=== PATIENT | female | born 1960 | race Caucasian/White ===

== ENCOUNTER 2018-07-31 14:21 | Emergency (ER) | payer MEDICARE ==
[2018-07-31 14:46] VITALS: BP 127/75
--- NOTE | 2018-07-31 17:02 | ED Physician Documentation ---
PD HPI UPPER EXT INJURY - Stated complaint Stated Complaint: LEFT MID FINGER INJ - Chief complaint Chief Complaint: Ext Problem - History obtained from History obtained from: Patient - History of Present Illness Location: Left, Hand (3rd finger) Where injury occurred: Home Timing - onset: Yesterday Timing - duration: Days (1) Timing - details: Abrupt onset Pain level max: 3 Pain level now: 2 Improved by: Rest Worsened by: Moving Associated symptoms: Swelling, Discolored (bruising). No: Weakness, Numbness, Tingling Contributing factors: No: Anticoagulated, Prior ortho surgery Similar symptoms before: Has not had sx before Recently seen: Not recently seen - Additonal information Additional information: pt is right handed. unable to extend L 3rd digit MCP joint after shaking her hand hard yesterday. 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 NVI. unable to extend MCP joint. ) - Neuro Neuro: Alert and oriented X 3 Results - Vitals Vitals: Vital Signs - 24 hr 07/31/18 14:42 Temperature 36.1 C L Heart Rate 101 H Respiratory 16 Rate Blood Pressure 127/75 O2 Saturation 97 Oxygen O2 Source Room air - Rads (name of study) L hand xray Radiology: Prelim report reviewed, EMP read contemporaneously, See rad report (Soft tissue swelling. ) PD MEDICAL DECISION MAKING - ED course Complexity details: reviewed results, re-evaluated patient, considered differential, d/w patient ED course: Patient is a 57-year-old female who appears to have a tendon injury to the left third digit, proximal phalanx, unable to fully extend that finger. No acute findings on x-ray. She was placed in a splint in extension. We will have her follow-up with a hand surgeon for repeat evaluation. Patient counseled regarding signs and symptoms for which I believe and urgent re-evaluation would be necessary. Patient with good understanding of and agreement to plan and is comfortable going home at this time This document was made in part using voice recognition software. While efforts are made to proofread this document, sound alike and grammatical errors may occur. Neurovascularly intact Departure - Departure Disposition: 01 Home, Self Care Clinical Impression: Injury of tendon of finger Condition: Good Instructions: ED Rupture Tendon Finger Follow-Up: Provider,Other [Physician No Access] - Comments: Ethan Smith Hand surgery [facility] Mon - Jess: 7 am - 6 pm Fri: 7 am - 5 pm Stay in the splint until released by hand surgery. This hopefully will heal on its own with splinting. Return if you worsen. Discharge Date/Time: 07/31/18 18:14
--- NOTE | 2018-07-31 17:35 | XRAY Report ---
Reason: L hand and prox phal 3rd digit injury Procedure Date: 07/31/2018 Accession Number: [id number] / [id number] Procedure: XR - Hand 3 View LT CPT Code: FULL RESULT: EXAM: LEFT HAND RADIOGRAPHY EXAM DATE: 07/31/2018 05:14 PM. CLINICAL HISTORY: Trauma, pain. COMPARISON: None. TECHNIQUE: 3 views. FINDINGS: Bones: Osteopenia. Thickened fifth metacarpal base due to old fracture. No definite acute fracture or other bone lesion. Joints: Mild degenerative changes most marked in the first CMC joint. Soft Tissues: Mild soft tissue swelling. IMPRESSION: Soft tissue swelling. RADIA
== END 2018-07-31 18:14 | disposition home or self-care (01) ==
LOC: ED 14:21
DX: S69.92XA Unspecified injury of left wrist, hand and finger(s), initial encounter (principal); I10 Essential (primary) hypertension; Z87.891 Personal history of nicotine dependence; X58.XXXA Exposure to other specified factors, initial encounter; Y92.009 Unspecified place in unspecified non-institutional (private) residence as the place of occurrence of the external cause
CPT/HCPCS: 99283

== ENCOUNTER 2019-01-18 15:06 | Outpatient (CLI) | payer MEDICARE | END 2019-01-18 15:07 | disposition critical access hospital (66) | LOC: EMS 15:06 | PROVIDERS: ATTEND Surgery | DX: R11.0 Nausea (principal); R10.9 Unspecified abdominal pain; R42 Dizziness and giddiness; I49.8 Other specified cardiac arrhythmias | CPT/HCPCS: A0425; A0427 ==

== ENCOUNTER 2019-01-18 15:35 | Inpatient (IN) | payer MEDICAID, MEDICARE ==
[2019-01-18 16:02] LABS: BASOPHILS # (AUTO) 0.1 10^3/uL (0.0-0.1); BASOPHILS % (AUTO) 0.9 %; EOSINOPHILS % (AUTO) 0.2 %; HGB - HEMOGLOBIN 12.6 g/dL (12.0-16.0); LYMPHOCYTES % (AUTO) 13.8 %; MEAN CORPUSCULAR HEMOGLOBIN 34.1 pg (27.0-31.0); MEAN CORPUSCULAR HGB CONC 31.5 g/dL (32.0-36.0); MEAN CORPUSCULAR VOLUME 108.3 fL (81.0-99.0); MEAN PLATELET VOLUME 8.1 fL (7.9-10.8); MONOCYTES # (AUTO) 0.3 10^3/uL (0.0-1.0); MONOCYTES % (AUTO) 3.9 %; NEUTROPHILS # (AUTO) 5.6 10^3/uL (1.5-6.6); NEUTROPHILS % (AUTO) 81.2 %; PLT - PLATELET COUNT 193 10^3/uL (130-450); RED BLOOD COUNT 3.69 10^6/uL (4.20-5.40); RED CELL DISTRIBUTION WIDTH 17.3 % (12.0-15.0); WHITE BLOOD COUNT 6.9 x10^3/uL (4.8-10.8)
[2019-01-18] MEDS ORDERED: SODIUM CHLORIDE 0.9% 1,000 ML IV ONE (16:19)
[2019-01-18] MEDS ORDERED: PROMETHAZINE INJ 25 MG in SODIUM CHLORIDE 0.9% 50 ML IV STA (16:19)
--- NOTE | 2019-01-18 16:21 | ED Physician Documentation ---
History of Present Illness - Stated complaint Stated Complaint: ABD PX - Chief complaint Chief Complaint: Abd Pain - History obtained from History obtained from: Patient, EMS - History of Present Illness Timing: Yesterday Pain level max: 8 Pain level now: 8 - Additonal information Additional information: 58-year-old female complains of significant severe nausea since yesterday. She states that occasionally her abdomen hurts. She is unable to tolerate p.o. today. No fevers. No changes to her medications. She used to drink heavily but has not had a drink of alcohol in the last 9 months. She received Zofran with EMS but this has not helped. Nothing makes it better. Eating makes it worse. 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 - Present Medications Home Medications: Ambulatory Orders Medication Instructions Recorded Confirmed Albuterol Sulfate 1.25 mg IH 01/18/19 01/18/19 Albuterol Sulfate [Proair Hfa 1 - 2 puffs INH Q4H PRN 01/18/19 01/18/19 Inhaler] Budesonide/Formoterol Fumarate 10.2 gm 01/18/19 [Symbicort 80-4.5 Mcg Inhaler] Fesoterodine Fumarate [Toviaz] 8 mg DAILY 01/18/19 01/18/19 Gabapentin [Neurontin] 300 mg PO TID 01/18/19 01/18/19 Lisinopril 10 mg PO DAILY 01/18/19 01/18/19 Omeprazole 40 mg BID 01/18/19 01/18/19 Oxycodone HCl [Roxicodone] 15 mg PO TID 01/18/19 01/18/19 Tizanidine HCl [Zanaflex] 2 mg PO QPM 01/18/19 01/18/19 Topiramate 25 mg PO BID 01/18/19 01/18/19 traZODone [Desyrel] 50 mg QPM 01/18/19 01/18/19 - Allergies Allergies/Adverse Reactions: Allergies Allergy/AdvReac Type Severity Reaction Status Date / Time Sulfa (Sulfonamide Allergy Unknown Verified 01/18/19 15:41 Antibiotics) - Social History Does the pt smoke?: Yes Smoking Status: Former smoker Does the pt drink ETOH?: No Does the pt have substance abuse?: No - POLST Patient has POLST: No PD ED PE NORMAL - Vitals Vital signs reviewed: Yes - General General: Alert and oriented X 3, No acute distress, Well developed/nourished - HEENT HEENT: PERRL, Moist mucous membranes - Neck Neck: Supple, no meningeal sign - Cardiac Cardiac: RRR, Strong equal pulses - Respiratory Respiratory: No respiratory distress, Clear bilaterally - Abdomen Abdomen: Soft, Non tender, Non distended - Derm Derm: Warm and dry, No rash - Extremities Extremities: No calf tenderness / cord - Neuro Neuro: Alert and oriented X 3 - Psych Psych: Normal mood, Normal affect Results - Vitals Vitals: Vital Signs - 24 hr 01/18/19 01/18/19 15:36 17:41 Temperature 36.8 C Heart Rate 116 H 113 H Respiratory 20 17 Rate Blood Pressure 123/71 115/68 O2 Saturation 100 100 Oxygen O2 Source Room air - Labs Labs: Laboratory Tests 01/18/19 01/18/19 01/18/19 15:55 15:55 15:55 WBC 6.9 RBC 3.69 L Hgb 12.6 Hct 40.0 MCV 108.3 H MCH 34.1 H MCHC 31.5 L RDW 17.3 H Plt Count 193 MPV 8.1 Neut # (Auto) 5.6 Lymph # (Auto) 1.0 L [place] # (Auto) 0.3 Eos # (Auto) 0.0 Baso # (Auto) 0.1 Absolute Nucleated RBC 0.01 Nucleated RBC % 0.2 VBG pH VBG pCO2 VBG pO2 VBG HCO3 VBG Total CO2 VBG O2 Saturation VBG Base Excess Sodium 132 L Potassium 4.3 Chloride 97 L Carbon Dioxide 9 L* Anion Gap 26.0 H BUN 9 Creatinine 1.0 Estimated GFR (MDRD) 57 L Glucose 59 L* Lactic Acid Calcium 9.2 Phosphorus Magnesium Total Bilirubin 1.8 H AST 79 H ALT 44 Alkaline Phosphatase 99 Total Protein 6.8 Albumin 3.8 Globulin 3.0 Albumin/Globulin Ratio 1.3 Lipase 281 H Urine Color Urine Clarity Urine pH Ur Specific [place] Urine Protein Urine Glucose (UA) Urine Ketones Urine Occult Blood Urine Nitrite Urine Bilirubin Urine Urobilinogen Ur Leukocyte Esterase Urine RBC Urine WBC Ur Squamous Epith Cells Urine Bacteria Urine Casts Ur Microscopic Review Urine Culture Comments Salicylates Urine Opiates Screen Ur Oxycodone Screen Urine Methadone Screen Ur Propoxyphene Screen Acetaminophen Ur Barbiturates Screen Ur Tricyclics Screen Ur Phencyclidine Scrn Ur Amphetamine Screen U Methamphetamines Scrn U Benzodiazepines Scrn Urine Cocaine Screen U Cannabinoids Screen Ethyl Alcohol < 5.0 Serum Ketones 01/18/19 01/18/19 01/18/19 15:55 15:55 15:55 WBC RBC Hgb Hct MCV MCH MCHC RDW Plt Count MPV Neut # (Auto) Lymph # (Auto) [place] # (Auto) Eos # (Auto) Baso # (Auto) Absolute Nucleated RBC Nucleated RBC % VBG pH VBG pCO2 VBG pO2 VBG HCO3 VBG Total CO2 VBG O2 Saturation VBG Base Excess Sodium Potassium Chloride Carbon Dioxide Anion Gap BUN Creatinine Estimated GFR (MDRD) Glucose Lactic Acid Calcium Phosphorus 2.5 Magnesium 2.0 Total Bilirubin AST ALT Alkaline Phosphatase Total Protein Albumin Globulin Albumin/Globulin Ratio Lipase Urine Color Urine Clarity Urine pH Ur Specific [place] Urine Protein Urine Glucose (UA) Urine Ketones Urine Occult Blood Urine Nitrite Urine Bilirubin Urine Urobilinogen Ur Leukocyte Esterase Urine RBC Urine WBC Ur Squamous Epith Cells Urine Bacteria Urine Casts Ur Microscopic Review Urine Culture Comments Salicylates 10.5 Urine Opiates Screen Ur Oxycodone Screen Urine Methadone Screen Ur Propoxyphene Screen Acetaminophen < 10 L Ur Barbiturates Screen Ur Tricyclics Screen Ur Phencyclidine Scrn Ur Amphetamine Screen U Methamphetamines Scrn U Benzodiazepines Scrn Urine Cocaine Screen U Cannabinoids Screen Ethyl Alcohol Serum Ketones SMALL H 01/18/19 01/18/19 01/18/19 16:20 16:20 16:33 WBC RBC Hgb Hct MCV MCH MCHC RDW Plt Count MPV Neut # (Auto) Lymph # (Auto) [place] # (Auto) Eos # (Auto) Baso # (Auto) Absolute Nucleated RBC Nucleated RBC % VBG pH VBG pCO2 VBG pO2 VBG HCO3 VBG Total CO2 VBG O2 Saturation VBG Base Excess Sodium Potassium Chloride Carbon Dioxide Anion Gap BUN Creatinine Estimated GFR (MDRD) Glucose Lactic Acid 1.5 Calcium Phosphorus Magnesium Total Bilirubin AST ALT Alkaline Phosphatase Total Protein Albumin Globulin Albumin/Globulin Ratio Lipase Urine Color YELLOW Urine Clarity CLEAR Urine pH 5.5 Ur Specific [place] >=1.030 H Urine Protein 30 H Urine Glucose (UA) NEGATIVE Urine Ketones >=80 H Urine Occult Blood SMALL H Urine Nitrite NEGATIVE Urine Bilirubin NEGATIVE Urine Urobilinogen 0.2 (NORMAL) Ur Leukocyte Esterase NEGATIVE Urine RBC 0-5 Urine WBC 0-3 Ur Squamous Epith Cells RARE Squamous Urine Bacteria None Seen Urine Casts 3-5 Fine Granular Ur Microscopic Review INDICATED Urine Culture Comments NOT INDICATED Salicylates Urine Opiates Screen POSITIVE H Ur Oxycodone Screen POSITIVE H Urine Methadone Screen NEGATIVE Ur Propoxyphene Screen NEGATIVE Acetaminophen Ur Barbiturates Screen NEGATIVE Ur Tricyclics Screen NEGATIVE Ur Phencyclidine Scrn NEGATIVE Ur Amphetamine Screen NEGATIVE U Methamphetamines Scrn NEGATIVE U Benzodiazepines Scrn NEGATIVE Urine Cocaine Screen NEGATIVE U Cannabinoids Screen NEGATIVE Ethyl Alcohol Serum Ketones 01/18/19 16:33 WBC RBC Hgb Hct MCV MCH MCHC RDW Plt Count MPV Neut # (Auto) Lymph # (Auto) [place] # (Auto) Eos # (Auto) Baso # (Auto) Absolute Nucleated RBC Nucleated RBC % VBG pH 7.191 L VBG pCO2 17.8 L VBG pO2 108.3 H VBG HCO3 6.7 L VBG Total CO2 7.2 L VBG O2 Saturation 97.2 H VBG Base Excess -19.3 L Sodium Potassium Chloride Carbon Dioxide Anion Gap BUN Creatinine Estimated GFR (MDRD) Glucose Lactic Acid Calcium Phosphorus Magnesium Total Bilirubin AST ALT Alkaline Phosphatase Total Protein Albumin Globulin Albumin/Globulin Ratio Lipase Urine Color Urine Clarity Urine pH Ur Specific [place] Urine Protein Urine Glucose (UA) Urine Ketones Urine Occult Blood Urine Nitrite Urine Bilirubin Urine Urobilinogen Ur Leukocyte Esterase Urine RBC Urine WBC Ur Squamous Epith Cells Urine Bacteria Urine Casts Ur Microscopic Review Urine Culture Comments Salicylates Urine Opiates Screen Ur Oxycodone Screen Urine Methadone Screen Ur Propoxyphene Screen Acetaminophen Ur Barbiturates Screen Ur Tricyclics Screen Ur Phencyclidine Scrn Ur Amphetamine Screen U Methamphetamines Scrn U Benzodiazepines Scrn Urine Cocaine Screen U Cannabinoids Screen Ethyl Alcohol Serum Ketones - Rads (name of study) CT abdomen pelvis Radiology: Prelim report reviewed, EMP read contemporaneously, See rad report (There appears to be acute pancreatitis. Correlate clinically. There is mild to moderate stranding seen adjacent to the head of the pancreas with soft tissue attenuation between the head of the pancreas and second portion of the duodenum which could represent phlegmon or fluid from acute pancreatitis versus acute duodenitis. Follow-up imaging is recommended to ensure resolution to exclude a low density mass, measures 1.1 x 3.3 cm. 2. Normal appendix. A few sigmoid colon diverticula. 3. A few left-sided small subserosal uterine fibroids are noted. 4. Severe fatty liver. 5. Mild common duct dilatation. 6. See above. ) PD MEDICAL DECISION MAKING - ED course Complexity details: reviewed results, re-evaluated patient, considered differential, d/w patient, d/w architectural sales consultant ED course: 58-year-old female with pancreatitis. She also has a metabolic acidosis. Significant decrease in her pH and CO2. Given IV fluids. She states that she is to be an alcoholic but has not had an alcoholic drink in 9 months. Initial consideration for possible alcoholic ketoacidosis? Has an elevated anion gap as well. Has pancreatitis on the CT scan. Ultrasound ordered and will be followed up by the hospitalist. Also had hypoglycemia and was started on dextrose. Will admit for further evaluation and care. Discussed the case with Dr. Miller, hospitalist accepts. Also discussed the case with her daughter over the phone who is a pediatric ICU nurse. This document was made in part using voice recognition software. While efforts are made to proofread this document, sound alike and grammatical errors may occur. Departure - Departure Disposition: 66 [facility] DC/Xfer Clinical Impression: Metabolic acidosis, Hypoglycemia, Tachycardia Pancreatitis Qualifiers: Chronicity: acute Pancreatitis type: unspecified pancreatitis type Acute pancreatitis complication: unspecified Qualified Code(s): K85.90 - Acute pancreatitis without necrosis or infection, unspecified Condition: Stable Discharge Date/Time: 01/18/19 20:35
[2019-01-18 16:22] LABS: ALBUMIN 3.8 g/dL (3.2-5.5); ALBUMIN/GLOBULIN RATIO 1.3 (1.0-2.2); BILIRUBIN,TOTAL 1.8 mg/dL (0.2-1.0); CALCIUM 9.2 mg/dL (8.5-10.3); TOTAL PROTEIN 6.8 g/dL (6.7-8.2)
[2019-01-18] MEDS ORDERED: DEXTROSE 5% 1,000 ML IV ONE ×2 (16:24→21:37)
[2019-01-18] MEDS ORDERED: IOVERSOL 320 100 ML VIAL IVP ONE (16:30)
[2019-01-18 16:32] LABS: BILIRUBIN,URINE NEGATIVE (NEGATIVE); GLUCOSE, URINE (UA) NEGATIVE (NEGATIVE); KETONES,URINE (UA) >=80 mg/dL (NEGATIVE); LEUKOCYTE ESTERASE, URINE NEGATIVE (NEGATIVE); NITRITE,URINE NEGATIVE (NEGATIVE); OCCULT BLOOD,URINE SMALL (NEGATIVE); PH,URINE 5.5 PH (5.0-7.5); PROTEIN,URINE 30 mg/dL (NEGATIVE); UROBILINOGEN,URINE 0.2 (NORMAL) E.U./dL (NORMAL)
[2019-01-18 16:35] LABS: CLARITY,URINE CLEAR (CLEAR)
[2019-01-18 16:43] LABS: VBG BASE EXCESS -19.3 mmol/L (-2 - +2); VBG PCO2 17.8 mmHg (41-51); VBG PH 7.191 (7.31-7.41); VBG PO2 108.3 mmHg (25-47); VBG TOTAL CO2 7.2 mmol/L (24-29)
[2019-01-18 16:45] LABS: BACTERIA,URINE None Seen /HPF (None Seen); CASTS, URINE 3-5 Fine Granular /LPF; RBC,URINE 0-5 /HPF (0-5); SQUAMOUS EPITHELIAL CELL,UR RARE Squamous (<= Few)
[2019-01-18 16:45] LABS: KETONES, SERUM (ACETEST) SMALL (NEGATIVE)
[2019-01-18] MEDS ORDERED: FOLIC ACID INJ 1 MG, THIAMINE INJ 100 MG, MAGNESIUM SULFATE 2 GM, MULTIVITAMIN 10 ML in... IV STA ×5 (16:51)
[2019-01-18 16:52] LABS: PHOSPHORUS 2.5 mg/dL (2.5-4.6)
[2019-01-18 16:54] LABS: MUDS CUTOFF CONCENTRATIONS CUTOFF CONC BELOW:
[2019-01-18 17:06] LABS: AMPHETAMINE SCREEN,URINE NEGATIVE (NEGATIVE); BENZODIAZEPINES SCREEN, URINE NEGATIVE (NEGATIVE); COCAINE SCREEN URINE NEGATIVE (NEGATIVE); METHADONE SCREEN, URINE NEGATIVE (NEGATIVE); METHAMPHETAMINES SCREEN, URINE NEGATIVE (NEGATIVE); OPIATE SCREEN, URINE POSITIVE (NEGATIVE); OXYCODONE SCREEN, URINE POSITIVE (NEGATIVE); PROPOXYPHENE SCREEN, URINE NEGATIVE (NEGATIVE); TRICYCLIC ANTIDEPRESSANT,URINE NEGATIVE (NEGATIVE)
--- NOTE | 2019-01-18 17:42 | CT Report ---
Reason: diffuse abd pain Procedure Date: 01/18/2019 Accession Number: [id number] / [id number] Procedure: CT - Abdomen/Pelvis W CPT Code: FULL RESULT: EXAM: CT ABDOMEN AND PELVIS EXAM DATE: 01/18/2019 05:03 PM. CLINICAL HISTORY: Diffuse abdominal pain. COMPARISONS: None. TECHNIQUE: Routine helical CT imaging was performed through the abdomen and pelvis. IV contrast: Optiray 320, 100 mL. Enteric contrast: Yes. Reconstructions: Coronal and sagittal. Had issue with IV on first injection. First scan has no IV contrast. Patient rescanned with successful IV contrast. In accordance with CT protocol optimization, one or more of the following dose reduction techniques were utilized for this exam: automated exposure control, adjustment of mA and/or KV based on patient size, or use of iterative reconstructive technique. FINDINGS: Lung bases: No acute findings. Liver: Severe fatty liver. Gallbladder: Unremarkable. Bile ducts: Mildly dilated common duct measuring 1 cm, gradually tapers distally. Pancreas: There is mild to moderate stranding seen adjacent to the head of the pancreas with soft tissue attenuation between the head of the pancreas and second portion of the duodenum which could represent phlegmon or fluid from acute pancreatitis versus acute duodenitis. Follow-up imaging is recommended to ensure resolution to exclude a low density mass, measures 1.1 x 3.3 cm. No pancreatic dilatation. Spleen: Unremarkable. Adrenals: Unremarkable. Kidneys: Unremarkable. No urinary tract calculi. Bowel: Normal appendix. A few sigmoid colon diverticula. No acute bowel findings are seen. No evidence for bowel obstruction. Pelvis: The bladder is partially decompressed. A few small left-sided subserosal uterine fibroids are noted. Vasculature: No acute findings. Bones: Left proximal femur internal fixation hardware. Lumbar spine hardware for fusion. No acute bone findings are seen. IMPRESSION: 1. There appears to be acute pancreatitis. Correlate clinically. There is mild to moderate stranding seen adjacent to the head of the pancreas with soft tissue attenuation between the head of the pancreas and second portion of the duodenum which could represent phlegmon or fluid from acute pancreatitis versus acute duodenitis. Follow-up imaging is recommended to ensure resolution to exclude a low density mass, measures 1.1 x 3.3 cm. 2. Normal appendix. A few sigmoid colon diverticula. 3. A few left-sided small subserosal uterine fibroids are noted. 4. Severe fatty liver. 5. Mild common duct dilatation. 6. See above. RADIA
[2019-01-18] MEDS ORDERED: HALOPERIDOL 5 MG/ML VIAL IVP STA (17:48)
[2019-01-18] MEDS ORDERED: PROCHLORPERAZINE 10 MG/2 ML VIAL IVP SCH (18:49)
[2019-01-18] MEDS ORDERED: LORazepam 2 MG/ML VIAL IVP STA (19:45)
[2019-01-18 20:20] LABS: VBG PCO2 27.1 mmHg (41-51); VBG PH 7.152 (7.31-7.41); VBG PO2 51.5 mmHg (25-47); VBG TOTAL CO2 10.1 mmol/L (24-29)
--- NOTE | 2019-01-18 20:58 | HISTORY & PHYSICAL EXAMINATION ---
Chief Complaint - Chief Complaint Chief Complaint: nausea, abdominal pain and dyspnea History of Present Illness - Admitted From Admitted From:: [facility] - History Obtained From Records Reviewed: yes History obtained from: patient - History of Present Illness HPI Comment/Other: Patient seen on 01/18/19 at 20:15pm Patient is a 58 y/o female who presented to the ED with complain of persistent nausea, diffuse abdominal pain and dyspnea. She has been nauseous and dry heaving since yesterday morning. She has been dyspneic for the past 4 days. Her abdominal pain is diffuse and sharp in nature. she has been constipated for the past 7 days. She reports a similar episode of this about 1 month ago, which lasted for 6 days. She reports chills but no fever. She denies eating anything bad and no sick contacts. As a result of her symptoms she has had poor po intake for the past 2 days. In the ED she was found to have a bicarbonate level of 9 and pH of 7.19 [address] a VBG. Her CT scan was also concerning for acute pancreatitis. As a result of her symptoms, she is being admitted for further management. History - Past Medical History Cardiovascular: reports: Hypertension Respiratory: reports: Asthma GI: reports: GERD : reports: Other (overactive bladder) Other Past Medical History: Insomnia - Past Surgical History Ortho: reports: Spine surgery (L4-L5 fusion) /PERINATAL NURSE: reports: section, Oophrectomy (bilateral) HEENT: reports: Tonsil/Adenoidectomy - Family & Social History Family History: Mother: CAD, Father: CVA/TIA, Other family: Cancer (daughter: breast cancer) Living arrangement: At home Living Situation: Alone Social History Notes: She denies alcohol, tobacco or illicit drug use - Substance History Use: Uses substance without health or social issues: NONE - POLST Patient has POLST: No POLST Status: Full Code Meds/Allgy - Home Medications Home Medications: Ambulatory Orders Medication Instructions Recorded Confirmed Albuterol Sulfate [Proair Hfa 1 - 2 puffs INH Q4H PRN 01/18/19 01/18/19 Inhaler] Budesonide/Formoterol Fumarate 10.2 gm IH 01/18/19 [Symbicort 80-4.5 Mcg Inhaler] Fesoterodine Fumarate [Toviaz] 8 mg DAILY 01/18/19 01/18/19 Gabapentin [Neurontin] 300 mg PO TID 01/18/19 01/18/19 Oxycodone HCl [Roxicodone] 15 mg PO TID 01/18/19 01/18/19 RX: Albuterol Sulfate 1.25 mg IH 01/18/19 01/18/19 RX: Lisinopril 10 mg PO DAILY 01/18/19 01/18/19 RX: Omeprazole 40 mg BID 01/18/19 01/18/19 RX: Topiramate 25 mg PO BID 01/18/19 01/18/19 RX: traZODone [Desyrel] 50 mg QPM 01/18/19 01/18/19 Tizanidine HCl [Zanaflex] 2 mg PO QPM 01/18/19 01/18/19 - Allergies Allergies/Adverse Reactions: Allergies Allergy/AdvReac Type Severity Reaction Status Date / Time Sulfa (Sulfonamide Allergy Unknown Verified 01/18/19 15:41 Antibiotics) Review of Systems - Constitutional Constitutional: reports: Chills, Weakness, Poor appetite. denies: Fever - Eyes Eyes: denies: Blurred vision, Vision loss, Dipolpia - Ears, Nose & Throat Ears, Nose & Throat: denies: Nasal pain, Nasal discharge, Sore throat, Hoarseness - Cardiovascular Cariovascular: denies: Chest pain, Edema - Respiratory Respiratory: reports: SOB at rest. denies: Cough, Sputum production, Wheezing - Gastrointestinal Gastrointestinal: reports: Abdominal pain, Constipation, Nausea, Reflux/heartburn, Poor appetite. denies: Rectal bleeding, Vomiting, Coffee grounds emesis - Genitourinary Genitourinary: denies: Dysuria, Frequency, Urgency, Hematuria - Integumentary Integumentary: denies: Rash, Pruritis, Lesions, Dryness - Neurological Neurological: denies: General weakness, Focal weakness, Headache, Dizziness - Psychiatric Psychiatric: denies: Depression, Anxiety - Endocrine Endocrine: denies: Polyuria, Polydypsia - Hematologic/Lymphatic Hematologic/Lymphatic: denies: Anemia, Bruising Prior Level of Functionality: Is independent of activities of daily living Exam - Vital Signs Vital Signs: Vital Signs x48h Temp Pulse Resp BP Pulse Ox 01/18/19 19:28 108 H 16 149/82 H 99 01/18/19 18:49 110 H 17 139/75 H 100 01/18/19 17:41 113 H 17 115/68 100 01/18/19 15:36 36.8 C 116 H 20 123/71 100 - Physical Exam General Appearance: positive: Alert, Mild distress Eyes Bilateral: positive: Normal inspection, PERRL, EOMI. negative: No scleral icterus ENT: positive: ENT inspection nml, Pharynx nml, Dry mucous membranes Neck: positive: Nml inspection, No JVD, Trachea midline Respiratory: positive: Chest non-tender. negative: Wheezes, Rales, Rhonchi Cardiovascular: positive: No murmur, Tachycardia Abdomen: positive: Nml bowel sounds, No distention, Tenderness (mild). negative: Guarding, Rebound, Hepatomegaly, Splenomegaly Back: positive: Nml inspection Skin: positive: Color nml, No rash, Warm, Dry Extremities: positive: Non-tender, Full ROM, Nml appearance, No pedal edema Neurologic/Psychiatric: positive: Oriented x3 Conclusion/Plan - Problem List (1) Pancreatitis Conclusion/Plan: Patient npo IV hydration with normal saline Pain management US of gall bladder pending Qualifiers: Chronicity: acute Pancreatitis type: unspecified pancreatitis type Acute pancreatitis complication: unspecified Qualified Code(s): K85.90 - Acute pancreatitis without necrosis or infection, unspecified (2) Metabolic acidosis Conclusion/Plan: Likely 2/2 poor po intake Patient had elevated ketones with hypoglycemia HCO3 9. Patient receiving sodium bicarbonate in d5w at 150ml/hr Will recheck bmp Zofran IV for nausea (3) Hypertension Conclusion/Plan: Patient on lisinopril at home Will resume when appropriate. Currently hydrating patient (4) Chronic back pain Conclusion/Plan: Dilaudid ordered Qualifiers: Back pain location: low back pain (5) GERD (gastroesophageal reflux disease) Conclusion/Plan: Protonix ordered (6) OAB (overactive bladder) Conclusion/Plan: Resume toviaz when appropriate (7) Insomnia Conclusion/Plan: On trazodone (8) Asthma Conclusion/Plan: Not in exacerbation Continue home medication Will order duoneb prn when indicated - Lab Results Fish Bones: 01/19/19 04:25 01/19/19 04:25 Core Measures - Anticipated LOS I expect patient to be DC'd or transferred within 96 hours.: Yes - DVT/VTE - Prophylaxis VTE/DVT Device ordered at admit?: Yes VTE/DVT Prophylaxis med ordered at admit?: Yes
[2019-01-18] MEDS: SODIUM CHLORIDE FLUSH 0.9% 10 ML SYRINGE IVP SCH (21:36)
[2019-01-18] MEDS: SODIUM BICARBONATE 150 MEQ in DEXTROSE 5% 1,000 ML IV SCH ×2 (21:36→22:07)
[2019-01-18] MEDS: SODIUM CHLORIDE 0.9% 1,000 ML IV SCH (21:37)
[2019-01-18] MEDS ORDERED: CIPROFLOX/DEXAMETH OTIC DROPS ONE (21:42)
[2019-01-18] MEDS ORDERED: SODIUM BICARBONATE 8.4% 50 MEQ/50 ML VIAL ONE (21:45)
[2019-01-18] MEDS: ONDANSETRON 4 MG/2 ML VIAL IVP PRN (22:52)
[2019-01-18] MEDS: HYDROmorphone 0.5 MG/0.5 ML SYRINGE IVP PRN (22:52)
[2019-01-18] MEDS: SODIUM CHLORIDE FLUSH 0.9% 10 ML SYRINGE IVP PRN (22:52)
--- NOTE | 2019-01-18 23:46 | Ultrasound Report ---
Reason: pancreatitis, RUQ US Procedure Date: 01/18/2019 Accession Number: [id number] Procedure: US - Abdomen Limited CPT Code: FULL RESULT: EXAM: ABDOMEN ULTRASOUND LIMITED, RUQ EXAM DATE: 01/18/2019 09:45 PM. CLINICAL HISTORY: Pancreatitis, RUQ US. COMPARISON: ABDOMEN/PELVIS W/ 01/18/2019 4:51 PM. TECHNIQUE: Real-time scanning was performed with static images obtained. FINDINGS: Liver: Liver parenchyma is heterogeneous and moderate to markedly hyperechoic. No discrete liver masses or intrahepatic bile duct dilation. However, evaluation for masses is limited secondary to the echogenicity. Right liver measures 14.7 cm. Main portal vein flow: Hepatopetal. Gallbladder: Normal. No stones, wall thickening, or sonographic Chaudhari's sign. Biliary System: CBD measures 10 mm. No intrahepatic bile duct dilation. Common bile duct measures 0.6 cm the pancreas head. Pancreas: Echogenic parenchyma. Mildly prominent pancreatic duct measures 0.3 cm. No mass. Right kidney: 10.6 cm. No hydronephrosis. Mild echogenic nonshadowing foci are noted in the inferior right kidney. No renal calculi noted on the CT performed on the same day. Abdominal aorta and IVC: Normal. Other: Study limited due to bowel gas. IMPRESSION: 1. Moderately fatty liver. No mass. No intrahepatic bile duct dilation. 2. Normal gallbladder. Common bile duct is prominent measuring up to 10 mm. No common bile duct stone. 3. Acute pancreatitis but is seen on accompanying CT. Parenchyma is echogenic. Mildly prominent pancreatic duct. No mass or peripancreatic collection. RADIA
[2019-01-19 01:22] LABS: CREATININE 0.8 mg/dL (0.4-1.0)
[2019-01-19] MEDS ORDERED: METOPROLOL 5 MG/5 ML VIAL IVP PRN (01:29)
[2019-01-19] MEDS: HYDROmorphone 0.5 MG/0.5 ML SYRINGE IVP PRN ×4 (02:26→12:36)
[2019-01-19] MEDS: SODIUM CHLORIDE FLUSH 0.9% 10 ML SYRINGE IVP PRN ×10 (02:27→23:44)
[2019-01-19] MEDS: PROCHLORPERAZINE 10 MG/2 ML VIAL IVP PRN ×4 (03:55→21:49)
[2019-01-19] MEDS: SODIUM CHLORIDE 0.9% 1,000 ML IV SCH ×3 (03:56→19:01)
[2019-01-19 05:01] LABS: BASOPHILS % (AUTO) 0.6 %; EOSINOPHILS # (AUTO) 0.1 10^3/uL (0.0-0.7); EOSINOPHILS % (AUTO) 1.3 %; HGB - HEMOGLOBIN 10.8 g/dL (12.0-16.0); LYMPHOCYTES % (AUTO) 24.5 %; MEAN CORPUSCULAR HEMOGLOBIN 34.8 pg (27.0-31.0); MEAN CORPUSCULAR HGB CONC 33.1 g/dL (32.0-36.0); MEAN CORPUSCULAR VOLUME 105.3 fL (81.0-99.0); MEAN PLATELET VOLUME 7.8 fL (7.9-10.8); MONOCYTES # (AUTO) 0.3 10^3/uL (0.0-1.0); MONOCYTES % (AUTO) 8.5 %; NEUTROPHILS # (AUTO) 2.7 10^3/uL (1.5-6.6); NEUTROPHILS % (AUTO) 65.1 %; PLT - PLATELET COUNT 131 10^3/uL (130-450); RED CELL DISTRIBUTION WIDTH 16.7 % (12.0-15.0); WHITE BLOOD COUNT 4.1 x10^3/uL (4.8-10.8)
[2019-01-19 05:16] LABS: ALBUMIN 2.9 g/dL (3.2-5.5); ALBUMIN/GLOBULIN RATIO 1.2 (1.0-2.2); ALKALINE PHOSPHATASE 79 IU/L (42-121); ALT ALANINE AMINOTRANSFERASE 27 IU/L (10-60); AST ASPARTATE AMINOTRANSFERASE 45 IU/L (10-42); BILIRUBIN,TOTAL 1.4 mg/dL (0.2-1.0); BUN - BLOOD UREA NITROGEN 6 mg/dL (6-20); CALCIUM 7.9 mg/dL (8.5-10.3); CARBON DIOXIDE - CO2 16 mmol/L (21-32); CHLORIDE 106 mmol/L (101-111); CREATININE 0.8 mg/dL (0.4-1.0); GFR - MDRD 73 (>89); GLUCOSE 128 mg/dL (70-100); SODIUM 135 mmol/L (135-145); TOTAL PROTEIN 5.3 g/dL (6.7-8.2)
[2019-01-19 05:17] LABS: PHOSPHORUS < 1.0 mg/dL (2.5-4.6)
[2019-01-19] MEDS: ONDANSETRON 4 MG/2 ML VIAL IVP PRN ×4 (05:57→23:44)
[2019-01-19] MEDS: POTASSIUM CHLOR 10 MEQ/100 ML 10 MEQ/100 ML BAG IV SCH ×4 (07:34→16:11)
[2019-01-19] MEDS: PANTOPRAZOLE 40 MG VIAL IVP SCH (08:13)
[2019-01-19] MEDS: POTASSIUM PHOSPHATE 15 MMOL in SODIUM CHLORIDE 0.9% 250 ML IV SCH ×2 (08:25→13:15)
[2019-01-19 09:02] LABS: VBG PCO2 26.8 mmHg (41-51); VBG PH 7.434 (7.31-7.41); VBG PO2 186.7 mmHg (25-47)
[2019-01-19 09:03] LABS: VBG BASE EXCESS -5.4 mmol/L (-2 - +2); VBG TOTAL CO2 18.4 mmol/L (24-29)
[2019-01-19] MEDS: SODIUM BICARBONATE 150 MEQ in DEXTROSE 5% 1,000 ML IV SCH (10:14)
[2019-01-19] MEDS: SODIUM CHLORIDE FLUSH 0.9% 10 ML SYRINGE IVP SCH ×3 (11:06→19:32)
--- NOTE | 2019-01-19 14:00 | PROVIDER PROGRESS NOTE ---
Assessment/Plan - Problem List (1) Metabolic acidosis Assessment/Plan: Improving with sodium bicarb replacement. Will stop iv bicarb replacement. She can be moved out of ICU, therefore, later today. (2) Pancreatitis Qualifiers: Chronicity: acute Pancreatitis type: unspecified pancreatitis type Acute pancreatitis complication: unspecified Qualified Code(s): K85.90 - Acute pancreatitis without necrosis or infection, unspecified Assessment/Plan: Abdominal ultrasound showed no gallstones or GB problems and did confirm pancreatitis. Continue plan with bowel rest, pain meds prn, antiemetics prn and iv hydration. (3) Chronic back pain Qualifiers: Back pain location: low back pain Assessment/Plan: Pain meds Dilaudid prn ordered. Will start to resume her home meds for chronic pain control, if she can tolerate them orally. (4) Hypertension Assessment/Plan: BP meds on hold, will resume when HTN develops. (5) Anemia Assessment/Plan: I suspect this is hemodilutional, from the aggressive iv hydration, but will check B12, Folate, Iron panel and if needed a stool guiac, replace if low. (6) Hypokalemia Assessment/Plan: This is due tto no po intake for at least 2 days. Replace K. Follow BMP daily. (7) GERD (gastroesophageal reflux disease) Assessment/Plan: On Protonix. (8) Hypoglycemia Assessment/Plan: Resolved with rehydration - Current Meds Current Meds: Current Medications Generic Name Dose Route Start Last Admin Trade Name Freq PRN Reason Stop Dose Admin Hydromorphone HCl 0.5 mg 01/18/19 21:49 01/19/19 12:36 Dilaudid Inj Syringe IVP 0.5 mg Q3H PRN Administration PAIN Sodium Chloride 1,000 mls @ 150 mls/hr 01/18/19 21:00 01/19/19 12:09 Normal Saline 0.9% IV 150 mls/hr .[id number] JEANNIE Administration Potassium Phosphate 15 mmol/ 255 mls @ 63 mls/hr 01/19/19 06:00 01/19/19 13:15 Sodium Chloride IV 01/19/19 13:59 63 mls/hr Q4H JEANNIE Administration Ondansetron HCl 4 mg 01/18/19 20:24 01/19/19 12:00 Zofran Inj IVP 4 mg Q6HR PRN Administration Nausea / Vomiting Pantoprazole Sodium 40 mg 01/19/19 07:00 01/19/19 08:13 Protonix IVP 40 mg QDAC JEANNIE Administration Prochlorperazine Edisylate 10 mg 01/18/19 20:24 01/19/19 09:50 Compazine Inj IVP 10 mg Q6HR PRN Administration Nausea / Vomiting Sodium Chloride 10 ml 01/19/19 01:00 01/19/19 11:06 Normal Saline Flush 0.9% IVP Not Given 0100,0900,1700 JEANNIE Sodium Chloride 10 ml 01/18/19 20:24 01/19/19 12:38 Normal Saline Flush 0.9% IVP 10 ml PRN PRN Administration NEEDED PER PROVIDER ORDERS - Lab Result Fish Bone Diagrams: 01/19/19 04:25 01/19/19 04:25 - Additional Planning My Orders: My Active Orders 01/18/19 18:48 DIET [NPO] [DIET] 01/19/19 06:00 Potassium Phosphate 15 mmol Sodium Chloride 0.9% [Normal Saline 0.9%] 250 ml IV Q4H 01/19/19 10:55 Miscellaenous Nursing Order [RC] QSHIFT Subjective - Subjective Patient Reports: Resting Comfortably, Fatigue Nursing Reports: Other (Feels dry and asking for po liquids.) Objective Vital Signs: Vital Signs - 24 hr 01/18/19 01/18/19 01/18/19 15:36 17:41 18:49 Temperature 36.8 C Heart Rate 116 H 113 H 110 H Heart Rate [ Monitoring electrodes] Respiratory 20 17 17 Rate Blood Pressure 123/71 115/68 139/75 H Blood Pressure [Left Brachial artery] Blood Pressure [Right Brachial artery] O2 Saturation 100 100 100 01/18/19 01/18/19 01/18/19 19:28 20:50 20:52 Temperature Heart Rate 108 H 107 H 106 H Heart Rate [ Monitoring electrodes] Respiratory 16 28 H 19 Rate Blood Pressure 149/82 H Blood Pressure [Left Brachial artery] Blood Pressure [Right Brachial artery] O2 Saturation 99 01/18/19 01/18/19 01/18/19 20:53 20:55 21:00 Temperature Heart Rate 106 H 108 H 104 H Heart Rate [ Monitoring electrodes] Respiratory 22 19 16 Rate Blood Pressure 153/94 H Blood Pressure [Left Brachial artery] Blood Pressure [Right Brachial artery] O2 Saturation 01/18/19 01/18/19 01/18/19 21:01 21:05 21:10 Temperature Heart Rate 104 H 104 H 106 H Heart Rate [ Monitoring electrodes] Respiratory 18 18 17 Rate Blood Pressure 147/87 H Blood Pressure [Left Brachial artery] Blood Pressure [Right Brachial artery] O2 Saturation 01/18/19 01/18/19 01/18/19 21:15 21:20 21:25 Temperature Heart Rate 106 H 106 H 104 H Heart Rate [ Monitoring electrodes] Respiratory 17 17 18 Rate Blood Pressure Blood Pressure [Left Brachial artery] Blood Pressure [Right Brachial artery] O2 Saturation 01/18/19 01/18/19 01/18/19 21:30 21:35 21:40 Temperature Heart Rate 103 H 104 H 103 H Heart Rate [ Monitoring electrodes] Respiratory 17 17 12 Rate Blood Pressure Blood Pressure [Left Brachial artery] Blood Pressure [Right Brachial artery] O2 Saturation 01/18/19 01/18/19 01/18/19 21:45 21:50 21:55 Temperature Heart Rate 107 H 106 H 105 H Heart Rate [ Monitoring electrodes] Respiratory 20 19 17 Rate Blood Pressure Blood Pressure [Left Brachial artery] Blood Pressure [Right Brachial artery] O2 Saturation 01/18/19 01/18/19 01/18/19 22:00 22:01 22:05 Temperature Heart Rate 103 H 103 H 103 H Heart Rate [ Monitoring electrodes] Respiratory 18 19 17 Rate Blood Pressure 154/88 H Blood Pressure [Left Brachial artery] Blood Pressure [Right Brachial artery] O2 Saturation 01/18/19 01/18/19 01/18/19 22:10 22:15 22:20 Temperature Heart Rate 106 H 104 H 104 H Heart Rate [ Monitoring electrodes] Respiratory 19 16 19 Rate Blood Pressure Blood Pressure [Left Brachial artery] Blood Pressure [Right Brachial artery] O2 Saturation 01/18/19 01/18/19 01/18/19 22:25 22:30 22:35 Temperature Heart Rate 104 H 106 H 103 H Heart Rate [ Monitoring electrodes] Respiratory 18 17 17 Rate Blood Pressure Blood Pressure [Left Brachial artery] Blood Pressure [Right Brachial artery] O2 Saturation 01/18/19 01/18/19 01/18/19 22:40 22:45 22:50 Temperature Heart Rate 106 H 107 H 106 H Heart Rate [ Monitoring electrodes] Respiratory 20 18 17 Rate Blood Pressure Blood Pressure [Left Brachial artery] Blood Pressure [Right Brachial artery] O2 Saturation 01/18/19 01/18/19 01/18/19 22:55 23:00 23:01 Temperature Heart Rate 105 H 106 H 106 H Heart Rate [ Monitoring electrodes] Respiratory 18 19 18 Rate Blood Pressure 134/78 H Blood Pressure [Left Brachial artery] Blood Pressure [Right Brachial artery] O2 Saturation 01/18/19 01/18/19 01/18/19 23:05 23:10 23:15 Temperature Heart Rate 106 H 105 H 105 H Heart Rate [ Monitoring electrodes] Respiratory 19 15 17 Rate Blood Pressure Blood Pressure [Left Brachial artery] Blood Pressure [Right Brachial artery] O2 Saturation 01/18/19 01/18/19 01/18/19 23:20 23:25 23:30 Temperature Heart Rate 104 H 104 H 104 H Heart Rate [ Monitoring electrodes] Respiratory 19 15 15 Rate Blood Pressure Blood Pressure [Left Brachial artery] Blood Pressure [Right Brachial artery] O2 Saturation 01/18/19 01/18/19 01/18/19 23:35 23:40 23:45 Temperature Heart Rate 104 H 102 H 104 H Heart Rate [ Monitoring electrodes] Respiratory 16 17 17 Rate Blood Pressure Blood Pressure [Left Brachial artery] Blood Pressure [Right Brachial artery] O2 Saturation 01/18/19 01/18/19 01/19/19 23:50 23:55 00:00 Temperature Heart Rate 103 H 102 H 101 H Heart Rate [ Monitoring electrodes] Respiratory 18 16 16 Rate Blood Pressure Blood Pressure [Left Brachial artery] Blood Pressure [Right Brachial artery] O2 Saturation 01/19/19 01/19/19 01/19/19 00:01 00:05 00:10 Temperature Heart Rate 101 H 100 102 H Heart Rate [ Monitoring electrodes] Respiratory 17 16 17 Rate Blood Pressure 137/84 H Blood Pressure [Left Brachial artery] Blood Pressure [Right Brachial artery] O2 Saturation 01/19/19 01/19/19 01/19/19 00:15 00:20 00:25 Temperature Heart Rate 100 101 H 103 H Heart Rate [ Monitoring electrodes] Respiratory 17 18 16 Rate Blood Pressure Blood Pressure [Left Brachial artery] Blood Pressure [Right Brachial artery] O2 Saturation 01/19/19 01/19/19 01/19/19 01:00 02:00 03:00 Temperature 36.6 C 36.6 C Heart Rate Heart Rate [ 102 H 104 H 103 H Monitoring electrodes] Respiratory 15 17 18 Rate Blood Pressure Blood Pressure 150/91 H 162/94 H 145/86 H [Left Brachial artery] Blood Pressure [Right Brachial artery] O2 Saturation 98 97 98 01/19/19 01/19/19 01/19/19 04:00 05:00 06:00 Temperature 36.5 C Heart Rate Heart Rate [ 100 96 97 Monitoring electrodes] Respiratory 16 19 18 Rate Blood Pressure Blood Pressure 149/83 H 159/94 H 159/94 H [Left Brachial artery] Blood Pressure [Right Brachial artery] O2 Saturation 97 96 97 01/19/19 01/19/19 01/19/19 07:00 08:00 09:00 Temperature 37.4 C Heart Rate Heart Rate [ 99 102 H 97 Monitoring electrodes] Respiratory 18 23 17 Rate Blood Pressure Blood Pressure 130/82 H 140/80 H 150/90 H [Left Brachial artery] Blood Pressure [Right Brachial artery] O2 Saturation 96 98 98 01/19/19 01/19/19 01/19/19 10:00 11:00 12:00 Temperature 37.4 C Heart Rate Heart Rate [ 100 100 94 Monitoring electrodes] Respiratory 16 19 17 Rate Blood Pressure Blood Pressure 154/86 H 140/88 H 134/85 H [Left Brachial artery] Blood Pressure [Right Brachial artery] O2 Saturation 96 98 98 01/19/19 13:00 Temperature Heart Rate Heart Rate [ 102 H Monitoring electrodes] Respiratory 15 Rate Blood Pressure Blood Pressure [Left Brachial artery] Blood Pressure 115/79 [Right Brachial artery] O2 Saturation 97 Oxygen O2 Source Room air I&O (Last 24 Hrs): Intake and Output Totals x24h 01/17/19 01/18/19 01/19/19 23:59 23:59 23:59 Intake Total 3066.2 3540.000 Output Total 1 Balance 3066.2 3539.000 General: Other (Sleeping) HEENT: Mucous membr. moist/pink Neck: Supple Neuro: Non Focal Cardiovascular: Regular rate, No murmurs Respiratory: No respiratory distress, Breath sounds nml Abdomen: Soft, No tenderness, Other (Distended) Extremities: No edema - Results Results: Laboratory Results WBC 4.1 x10^3/uL (4.8-10.8) L 01/19/19 04:25 RBC 3.10 10^6/uL (4.20-5.40) L 01/19/19 04:25 Hgb 10.8 g/dL (12.0-16.0) L 01/19/19 04:25 Hct 32.6 % (37.0-47.0) L 01/19/19 04:25 MCV 105.3 fL (81.0-99.0) H 01/19/19 04:25 MCH 34.8 pg (27.0-31.0) H 01/19/19 04:25 MCHC 33.1 g/dL (32.0-36.0) 01/19/19 04:25 RDW 16.7 % (12.0-15.0) H 01/19/19 04:25 Plt Count 131 10^3/uL (130-450) 01/19/19 04:25 MPV 7.8 fL (7.9-10.8) L 01/19/19 04:25 Neut # (Auto) 2.7 10^3/uL (1.5-6.6) 01/19/19 04:25 Lymph # (Auto) 1.0 10^3/uL (1.5-3.5) L 01/19/19 04:25 [place] # (Auto) 0.3 10^3/uL (0.0-1.0) 01/19/19 04:25 Eos # (Auto) 0.1 10^3/uL (0.0-0.7) 01/19/19 04:25 Baso # (Auto) 0.0 10^3/uL (0.0-0.1) 01/19/19 04:25 Absolute Nucleated RBC 0.00 x10^3/uL 01/19/19 04:25 Nucleated RBC % 0.1 /100WBC 01/19/19 04:25 VBG pH 7.434 (7.31-7.41) H 01/19/19 08:57 VBG pCO2 26.8 mmHg (41-51) L 01/19/19 08:57 VBG pO2 186.7 mmHg (25-47) H 01/19/19 08:57 VBG HCO3 17.5 mmol/L (23-28) L 01/19/19 08:57 VBG Total CO2 18.4 mmol/L (24-29) L 01/19/19 08:57 VBG O2 Saturation 99.1 % (60-80) H 01/19/19 08:57 VBG Base Excess -5.4 mmol/L (-2 - +2) L 01/19/19 08:57 Sodium 135 mmol/L (135-145) 01/19/19 04:25 Potassium 3.4 mmol/L (3.5-5.0) L 01/19/19 04:25 Chloride 106 mmol/L (101-111) 01/19/19 04:25 Carbon Dioxide 16 mmol/L (21-32) L 01/19/19 04:25 Anion Gap 13.0 (6-13) 01/19/19 04:25 BUN 6 mg/dL (6-20) 01/19/19 04:25 Creatinine 0.8 mg/dL (0.4-1.0) 01/19/19 04:25 Estimated GFR (MDRD) 73 (>89) L 01/19/19 04:25 Glucose 128 mg/dL (70-100) H 01/19/19 04:25 Lactic Acid 1.5 mmol/L (0.5-2.2) 01/18/19 16:33 Calcium 7.9 mg/dL (8.5-10.3) L 01/19/19 04:25 Phosphorus < 1.0 mg/dL (2.5-4.6) L* 01/19/19 04:25 Magnesium 2.0 mg/dL (1.7-2.8) 01/19/19 04:25 Total Bilirubin 1.4 mg/dL (0.2-1.0) H 01/19/19 04:25 AST 45 IU/L (10-42) H 01/19/19 04:25 ALT 27 IU/L (10-60) 01/19/19 04:25 Alkaline Phosphatase 79 IU/L (42-121) 01/19/19 04:25 Total Protein 5.3 g/dL (6.7-8.2) L 01/19/19 04:25 Albumin 2.9 g/dL (3.2-5.5) L 01/19/19 04:25 Globulin 2.4 g/dL (2.1-4.2) 01/19/19 04:25 Albumin/Globulin Ratio 1.2 (1.0-2.2) 01/19/19 04:25 Lipase 281 U/L (22-51) H 01/18/19 15:55 Urine Color YELLOW 01/18/19 16:20 Urine Clarity CLEAR (CLEAR) 01/18/19 16:20 Urine pH 5.5 PH (5.0-7.5) 01/18/19 16:20 Ur Specific [place] >=1.030 (1.002-1.030) H 01/18/19 16:20 Urine Protein 30 mg/dL (NEGATIVE) H 01/18/19 16:20 Urine Glucose (UA) NEGATIVE mg/dL (NEGATIVE) 01/18/19 16:20 Urine Ketones >=80 mg/dL (NEGATIVE) H 01/18/19 16:20 Urine Occult Blood SMALL (NEGATIVE) H 01/18/19 16:20 Urine Nitrite NEGATIVE (NEGATIVE) 01/18/19 16:20 Urine Bilirubin NEGATIVE (NEGATIVE) 01/18/19 16:20 Urine Urobilinogen 0.2 (NORMAL) E.U./dL (NORMAL) 01/18/19 16:20 Ur Leukocyte Esterase NEGATIVE (NEGATIVE) 01/18/19 16:20 Urine RBC 0-5 /HPF (0-5) 01/18/19 16:20 Urine WBC 0-3 /HPF (0-5) 01/18/19 16:20 Ur Squamous Epith Cells RARE Squamous (<= Few) 01/18/19 16:20 Urine Bacteria None Seen /HPF (None Seen) 01/18/19 16:20 Urine Casts 3-5 Fine Granular /LPF 01/18/19 16:20 Ur Microscopic Review INDICATED 01/18/19 16:20 Urine Culture Comments NOT INDICATED 01/18/19 16:20 Nasal Screen MRSA (PCR) NEGATIVE (NEGATIVE) 01/18/19 20:42 Salicylates 10.5 mg/dL 01/18/19 15:55 Urine Opiates Screen POSITIVE (NEGATIVE) H 01/18/19 16:20 Ur Oxycodone Screen POSITIVE (NEGATIVE) H 01/18/19 16:20 Urine Methadone Screen NEGATIVE (NEGATIVE) 01/18/19 16:20 Ur Propoxyphene Screen NEGATIVE (NEGATIVE) 01/18/19 16:20 Acetaminophen < 10 ug/mL (10-30) L 01/18/19 15:55 Ur Barbiturates Screen NEGATIVE (NEGATIVE) 01/18/19 16:20 Ur Tricyclics Screen NEGATIVE (NEGATIVE) 01/18/19 16:20 Ur Phencyclidine Scrn NEGATIVE (NEGATIVE) 01/18/19 16:20 Ur Amphetamine Screen NEGATIVE (NEGATIVE) 01/18/19 16:20 U Methamphetamines Scrn NEGATIVE (NEGATIVE) 01/18/19 16:20 U Benzodiazepines Scrn NEGATIVE (NEGATIVE) 01/18/19 16:20 Urine Cocaine Screen NEGATIVE (NEGATIVE) 01/18/19 16:20 U Cannabinoids Screen NEGATIVE (NEGATIVE) 01/18/19 16:20 Ethyl Alcohol < 5.0 mg/dL 01/18/19 15:55 Serum Ketones SMALL (NEGATIVE) H 01/18/19 15:55
[2019-01-19] MEDS: HYDROmorphone 1 MG/ML SYRINGE IVP PRN ×4 (15:40→23:44)
[2019-01-19] MEDS ORDERED: POTASSIUM CHLOR 10 MEQ/100 ML 10 MEQ/100 ML BAG IV ONE (15:49)
[2019-01-19] MEDS: GABAPENTIN 300 MG CAPSULE PO SCH ×2 (16:22→21:46)
[2019-01-19] MEDS: TOPIRAMATE 25 MG TABLET PO SCH (20:59)
[2019-01-19] MEDS: traZODone 50 MG TABLET PO SCH (20:59)
[2019-01-19] MEDS: oxyCODONE 5 MG TABLET PO SCH (21:46)
[2019-01-20] MEDS: SODIUM CHLORIDE 0.9% 1,000 ML IV SCH ×4 (01:17→20:09)
[2019-01-20] MEDS: HYDROmorphone 1 MG/ML SYRINGE IVP PRN ×5 (03:50→21:06)
[2019-01-20] MEDS: SODIUM CHLORIDE FLUSH 0.9% 10 ML SYRINGE IVP PRN ×2 (03:51→06:41)
[2019-01-20] MEDS: PROCHLORPERAZINE 10 MG/2 ML VIAL IVP PRN (03:55)
[2019-01-20] MEDS: GABAPENTIN 300 MG CAPSULE PO SCH ×3 (05:23→21:44)
[2019-01-20] MEDS: oxyCODONE 5 MG TABLET PO SCH ×3 (05:23→21:44)
[2019-01-20 05:52] LABS: BASOPHILS % (AUTO) 0.8 %; EOSINOPHILS # (AUTO) 0.1 10^3/uL (0.0-0.7); EOSINOPHILS % (AUTO) 2.3 %; HGB - HEMOGLOBIN 9.7 g/dL (12.0-16.0); LYMPHOCYTES # (AUTO) 1.1 10^3/uL (1.5-3.5); MEAN CORPUSCULAR HEMOGLOBIN 34.6 pg (27.0-31.0); MEAN CORPUSCULAR HGB CONC 32.9 g/dL (32.0-36.0); MEAN CORPUSCULAR VOLUME 105.1 fL (81.0-99.0); MEAN PLATELET VOLUME 8.2 fL (7.9-10.8); MONOCYTES # (AUTO) 0.2 10^3/uL (0.0-1.0); MONOCYTES % (AUTO) 6.7 %; NEUTROPHILS # (AUTO) 1.7 10^3/uL (1.5-6.6); NEUTROPHILS % (AUTO) 54.2 %; PLT - PLATELET COUNT 106 10^3/uL (130-450); RED BLOOD COUNT 2.81 10^6/uL (4.20-5.40); RED CELL DISTRIBUTION WIDTH 16.7 % (12.0-15.0); WHITE BLOOD COUNT 3.1 x10^3/uL (4.8-10.8)
[2019-01-20 06:15] LABS: % IRON SATURATION 28 % (20-50); ALBUMIN 2.7 g/dL (3.2-5.5); ALBUMIN/GLOBULIN RATIO 1.4 (1.0-2.2); ALKALINE PHOSPHATASE 65 IU/L (42-121); ALT ALANINE AMINOTRANSFERASE 33 IU/L (10-60); AST ASPARTATE AMINOTRANSFERASE 83 IU/L (10-42); BILIRUBIN,TOTAL 1.1 mg/dL (0.2-1.0); BUN - BLOOD UREA NITROGEN < 5 mg/dL (6-20); CALCIUM 7.6 mg/dL (8.5-10.3); CARBON DIOXIDE - CO2 24 mmol/L (21-32); CHLORIDE 103 mmol/L (101-111); CREATININE 0.5 mg/dL (0.4-1.0); GFR - MDRD 126 (>89); GLUCOSE 107 mg/dL (70-100); IRON 44 ug/dL (28-170); SODIUM 135 mmol/L (135-145); TOTAL IRON BINDING CAPACITY 160 ug/dL (250-450); TOTAL PROTEIN 4.6 g/dL (6.7-8.2); TRANSFERRIN 114 mg/dL (192-382)
[2019-01-20 06:18] LABS: MAGNESIUM 1.7 mg/dL (1.7-2.8); PHOSPHORUS 1.3 mg/dL (2.5-4.6)
[2019-01-20 06:34] LABS: FOLATE 9.25 ng/mL (5.90 - >24.8)
[2019-01-20] MEDS: POTASSIUM CHLOR 10 MEQ/100 ML 10 MEQ/100 ML BAG IV SCH ×4 (06:41→11:00)
[2019-01-20] MEDS: PANTOPRAZOLE 40 MG VIAL IVP SCH (06:41)
[2019-01-20] MEDS ORDERED: POTASSIUM PHOSPHATE 21 MMOL in SODIUM CHLORIDE 0.9% 250 ML IV ONE (08:00)
[2019-01-20] MEDS: SODIUM CHLORIDE FLUSH 0.9% 10 ML SYRINGE IVP SCH ×3 (09:16→21:07)
[2019-01-20] MEDS: TOPIRAMATE 25 MG TABLET PO SCH ×2 (09:16→21:09)
--- NOTE | 2019-01-20 09:17 | PROVIDER PROGRESS NOTE ---
Assessment/Plan - Problem List (1) Pancreatitis Qualifiers: Chronicity: acute Pancreatitis type: unspecified pancreatitis type Acute pancreatitis complication: unspecified Qualified Code(s): K85.90 - Acute pancreatitis without necrosis or infection, unspecified Assessment/Plan: She has no GB disease to explain this pancreatitis attack, and she has never had it before. She denies any alcohol intake for 9 mos. The pancreatic duct appeared OK by CT. She does remember falling on her L side 10 days ago, when her leg gave out. Possibly she developed some trauma there. She may need an MRCP, if no better in 1-2 days. Will check a Triglyceride level to R/O hypertriglyceridemia as the cause, but with her malnutrition (see below), that is very unlikely. Will add Toradol for pain control. Continue bowel rest, and narcotics prn. (2) SOB (shortness of breath) Assessment/Plan: She reports being SOB for several weeks before this N/V started, and was trying to use her inhalers (for asthma) to help. which it did not. Will obtain a CXR, EKG, Echo. Will start Iron for the severe anemia, which is contributing to her SOB. Follow CBC daily and if Hgb <7, will transfuse blood. (3) Anemia Qualifiers: Anemia type: iron deficiency Assessment/Plan: Her labs show pancytopenia, as seen in alcohol abuse patients. She reported to the admitting doctor, that she has not had alcohol in 9 mos. She also denied to me any alcohol intake for many months and described to me her very poor overall nutrition: she eats only once a day, a half piece of toasted potato bread with half a hard boiled egg, butter, all grilled with coconut oil spray on a Rafi grill. She does this because she is quickly satiated, not for weight loss. Will start Banana bag for iv vitamin and mineral replacement. Will start iv Iron replacement. Will start ppn. Will request a Nutrition consult. Follow CBC daily. (4) Hypokalemia Assessment/Plan: Related to no oral intake for several days before admission. Replace K. Follow BMP daily. (5) Hypophosphatemia Assessment/Plan: Related to no oral intake for several days before admission. Replace phosphate. Follow PO4 daily. (6) Protein-calorie malnutrition Assessment/Plan: As in # 4,5,6 above (7) GERD (gastroesophageal reflux disease) Assessment/Plan: Pt on Pepcid. (8) Hypertension Assessment/Plan: BP sable without HTN meds (9) Chronic back pain Qualifiers: Back pain location: low back pain Assessment/Plan: Continue pain meds and start Toradol prn as well. (10) OAB (overactive bladder) Assessment/Plan: She is requesting her Toviaz be started. Will order. (11) History of asthma Assessment/Plan: No wheezing or prolonged expiratory phase by exam yesterday or today. CXR pending. (12) Metabolic acidosis Assessment/Plan: It was from fasting ketosis Resolved with iv bicarb drip and rehydration - Current Meds Current Meds: Current Medications Generic Name Dose Route Start Last Admin Trade Name Freq PRN Reason Stop Dose Admin Gabapentin 300 mg 01/19/19 16:00 01/20/19 05:23 Neurontin PO 300 mg TID JEANNIE Administration Hydromorphone HCl 1 mg 01/19/19 19:46 01/20/19 08:02 Dilaudid Inj Syringe IVP 1 mg Q4HR PRN Administration PAIN Sodium Chloride 1,000 mls @ 150 mls/hr 01/18/19 21:00 01/20/19 08:00 Normal Saline 0.9% IV 150 mls/hr .[id number] JEANNIE Administration Potassium Chloride 10 meq in 100 mls @ 100 mls/hr 01/20/19 07:00 01/20/19 09:00 Potassium Chloride IV 01/20/19 10:59 75 mls/hr Q1H JEANNIE Administration Protocol Ondansetron HCl 4 mg 01/18/19 20:24 01/19/19 23:44 Zofran Inj IVP 4 mg Q6HR PRN Administration Nausea / Vomiting Oxycodone HCl 15 mg 01/19/19 22:00 01/20/19 05:23 Roxicodone PO 15 mg Q8HR JEANNIE Administration Pantoprazole Sodium 40 mg 01/19/19 07:00 01/20/19 06:41 Protonix IVP 40 mg QDAC JEANNIE Administration Prochlorperazine Edisylate 10 mg 01/18/19 20:24 01/20/19 03:55 Compazine Inj IVP 10 mg Q6HR PRN Administration Nausea / Vomiting Sodium Chloride 10 ml 01/19/19 01:00 01/19/19 19:32 Normal Saline Flush 0.9% IVP 10 ml 0100,0900,1700 JEANNIE Administration Sodium Chloride 10 ml 01/18/19 20:24 01/20/19 06:41 Normal Saline Flush 0.9% IVP 10 ml PRN PRN Administration NEEDED PER PROVIDER ORDERS Topiramate 25 mg 01/19/19 21:00 01/19/19 20:59 Topamax PO 25 mg BID JEANNIE Administration Trazodone HCl 50 mg 01/19/19 21:00 01/19/19 20:59 Desyrel PO 50 mg QPM JEANNIE Administration - Lab Result Fish Bone Diagrams: 01/20/19 04:49 01/20/19 04:49 - Additional Planning My Orders: My Active Orders 01/19/19 10:55 Miscellaenous Nursing Order [RC] QSHIFT 01/19/19 16:00 Gabapentin [Neurontin] 300 mg PO TID 01/19/19 21:00 Topiramate [Topamax] 25 mg PO BID traZODone [Desyrel] 50 mg PO QPM 01/20/19 05:00 LIPASE [CHEM] Routine 01/20/19 07:00 Potassium Chlor 10 Meq/100 ml [Potassium Chloride] 10 meq in 100 ml IV Q1H 01/20/19 08:00 Potassium Phosphate 21 mmol Sodium Chloride 0.9% [Normal Saline 0.9%] 250 ml IV ONCE 01/20/19 09:15 Fesoterodine Fumarate [Toviaz] 8 mg PO DAILY Subjective - Subjective Patient Reports: Feeling Better, Pain (Still has abdominal pain when sips water, flavored with applejuice) Nursing Reports: Shortness of Breath (She walked in rrom and was SOB) Objective Vital Signs: Vital Signs - 24 hr 01/19/19 01/19/19 01/19/19 10:00 11:00 12:00 Temperature 37.4 C Heart Rate [ 100 100 94 Monitoring electrodes] Respiratory 16 19 17 Rate Blood Pressure 154/86 H 140/88 H 134/85 H [Left Brachial artery] Blood Pressure [Right Brachial artery] O2 Saturation 96 98 98 01/19/19 01/19/19 01/19/19 13:00 14:00 15:00 Temperature Heart Rate [ 102 H 99 104 H Monitoring electrodes] Respiratory 15 18 23 Rate Blood Pressure [Left Brachial artery] Blood Pressure 115/79 146/93 H 155/96 H [Right Brachial artery] O2 Saturation 97 99 97 01/19/19 01/19/19 01/19/19 16:00 17:00 18:00 Temperature 37.2 C Heart Rate [ 97 94 95 Monitoring electrodes] Respiratory 18 20 20 Rate Blood Pressure [Left Brachial artery] Blood Pressure 128/84 H 150/97 H 115/74 [Right Brachial artery] O2 Saturation 97 97 99 01/19/19 01/19/19 01/19/19 19:00 20:14 21:00 Temperature 36.9 C Heart Rate [ 97 96 97 Monitoring electrodes] Respiratory 16 17 20 Rate Blood Pressure [Left Brachial artery] Blood Pressure 140/91 H 131/95 H 136/74 H [Right Brachial artery] O2 Saturation 99 99 99 01/19/19 01/19/19 01/20/19 22:00 23:00 00:06 Temperature 36.6 C Heart Rate [ 96 101 H 91 Monitoring electrodes] Respiratory 14 17 12 Rate Blood Pressure [Left Brachial artery] Blood Pressure 139/89 H 134/71 H 122/73 [Right Brachial artery] O2 Saturation 98 98 96 01/20/19 01/20/19 01/20/19 01:00 02:00 03:00 Temperature Heart Rate [ 86 96 84 Monitoring electrodes] Respiratory 12 12 12 Rate Blood Pressure [Left Brachial artery] Blood Pressure 115/77 114/79 130/69 [Right Brachial artery] O2 Saturation 96 96 96 01/20/19 01/20/19 01/20/19 04:04 05:00 06:00 Temperature 36.7 C Heart Rate [ 102 H 95 92 Monitoring electrodes] Respiratory 12 11 L 11 L Rate Blood Pressure [Left Brachial artery] Blood Pressure 139/95 H 124/87 H 117/74 [Right Brachial artery] O2 Saturation 94 96 95 01/20/19 01/20/19 07:00 08:00 Temperature 36.7 C Heart Rate [ 95 96 Monitoring electrodes] Respiratory 14 24 Rate Blood Pressure [Left Brachial artery] Blood Pressure 121/90 H 135/93 H [Right Brachial artery] O2 Saturation 99 97 Oxygen O2 Source Room air I&O (Last 24 Hrs): Intake and Output Totals x24h 01/18/19 01/19/19 01/20/19 23:59 23:59 23:59 Intake Total 3066.2 6337.500 2202.5 Output Total 826 550 Balance 3066.2 5511.500 1652.5 General: Alert, Oriented x3 HEENT: Mucous membr. moist/pink Neck: Supple Neuro: Non Focal Cardiovascular: Regular rate, No murmurs Respiratory: No respiratory distress, Breath sounds nml Abdomen: Soft, Other (Distended) Extremities: No edema - Results Results: Laboratory Results WBC 3.1 x10^3/uL (4.8-10.8) L 01/20/19 04:49 RBC 2.81 10^6/uL (4.20-5.40) L 01/20/19 04:49 Hgb 9.7 g/dL (12.0-16.0) L 01/20/19 04:49 Hct 29.5 % (37.0-47.0) L 01/20/19 04:49 MCV 105.1 fL (81.0-99.0) H 01/20/19 04:49 MCH 34.6 pg (27.0-31.0) H 01/20/19 04:49 MCHC 32.9 g/dL (32.0-36.0) 01/20/19 04:49 RDW 16.7 % (12.0-15.0) H 01/20/19 04:49 Plt Count 106 10^3/uL (130-450) L 01/20/19 04:49 MPV 8.2 fL (7.9-10.8) 01/20/19 04:49 Neut # (Auto) 1.7 10^3/uL (1.5-6.6) 01/20/19 04:49 Lymph # (Auto) 1.1 10^3/uL (1.5-3.5) L 01/20/19 04:49 [place] # (Auto) 0.2 10^3/uL (0.0-1.0) 01/20/19 04:49 Eos # (Auto) 0.1 10^3/uL (0.0-0.7) 01/20/19 04:49 Baso # (Auto) 0.0 10^3/uL (0.0-0.1) 01/20/19 04:49 Absolute Nucleated RBC 0.00 x10^3/uL 01/20/19 04:49 Nucleated RBC % 0.1 /100WBC 01/20/19 04:49 VBG pH 7.434 (7.31-7.41) H 01/19/19 08:57 VBG pCO2 26.8 mmHg (41-51) L 01/19/19 08:57 VBG pO2 186.7 mmHg (25-47) H 01/19/19 08:57 VBG HCO3 17.5 mmol/L (23-28) L 01/19/19 08:57 VBG Total CO2 18.4 mmol/L (24-29) L 01/19/19 08:57 VBG O2 Saturation 99.1 % (60-80) H 01/19/19 08:57 VBG Base Excess -5.4 mmol/L (-2 - +2) L 01/19/19 08:57 Sodium 135 mmol/L (135-145) 01/20/19 04:49 Potassium 3.0 mmol/L (3.5-5.0) L 01/20/19 04:49 Chloride 103 mmol/L (101-111) 01/20/19 04:49 Carbon Dioxide 24 mmol/L (21-32) 01/20/19 04:49 Anion Gap 8.0 (6-13) 01/20/19 04:49 BUN < 5 mg/dL (6-20) L 01/20/19 04:49 Creatinine 0.5 mg/dL (0.4-1.0) 01/20/19 04:49 Estimated GFR (MDRD) 126 (>89) 01/20/19 04:49 Glucose 107 mg/dL (70-100) H 01/20/19 04:49 Lactic Acid 1.5 mmol/L (0.5-2.2) 01/18/19 16:33 Calcium 7.6 mg/dL (8.5-10.3) L 01/20/19 04:49 Phosphorus 1.3 mg/dL (2.5-4.6) L 01/20/19 04:49 Magnesium 1.7 mg/dL (1.7-2.8) 01/20/19 04:49 Iron 44 ug/dL (28-170) 01/20/19 04:49 TIBC 160 ug/dL (250-450) L 01/20/19 04:49 % Saturation 28 % (20-50) 01/20/19 04:49 Transferrin 114 mg/dL (192-382) L 01/20/19 04:49 Total Bilirubin 1.1 mg/dL (0.2-1.0) H 01/20/19 04:49 AST 83 IU/L (10-42) H 01/20/19 04:49 ALT 33 IU/L (10-60) 01/20/19 04:49 Alkaline Phosphatase 65 IU/L (42-121) 01/20/19 04:49 Total Protein 4.6 g/dL (6.7-8.2) L 01/20/19 04:49 Albumin 2.7 g/dL (3.2-5.5) L 01/20/19 04:49 Globulin 1.9 g/dL (2.1-4.2) L 01/20/19 04:49 Albumin/Globulin Ratio 1.4 (1.0-2.2) 01/20/19 04:49 Lipase 281 U/L (22-51) H 01/18/19 15:55 Vitamin B12 496 pg/mL (180-914) 01/20/19 04:49 Folate 9.25 ng/mL (5.90 - >24.8) 01/20/19 04:49 Urine Color YELLOW 01/18/19 16:20 Urine Clarity CLEAR (CLEAR) 01/18/19 16:20 Urine pH 5.5 PH (5.0-7.5) 01/18/19 16:20 Ur Specific [place] >=1.030 (1.002-1.030) H 01/18/19 16:20 Urine Protein 30 mg/dL (NEGATIVE) H 01/18/19 16:20 Urine Glucose (UA) NEGATIVE mg/dL (NEGATIVE) 01/18/19 16:20 Urine Ketones >=80 mg/dL (NEGATIVE) H 01/18/19 16:20 Urine Occult Blood SMALL (NEGATIVE) H 01/18/19 16:20 Urine Nitrite NEGATIVE (NEGATIVE) 01/18/19 16:20 Urine Bilirubin NEGATIVE (NEGATIVE) 01/18/19 16:20 Urine Urobilinogen 0.2 (NORMAL) E.U./dL (NORMAL) 01/18/19 16:20 Ur Leukocyte Esterase NEGATIVE (NEGATIVE) 01/18/19 16:20 Urine RBC 0-5 /HPF (0-5) 01/18/19 16:20 Urine WBC 0-3 /HPF (0-5) 01/18/19 16:20 Ur Squamous Epith Cells RARE Squamous (<= Few) 01/18/19 16:20 Urine Bacteria None Seen /HPF (None Seen) 01/18/19 16:20 Urine Casts 3-5 Fine Granular /LPF 01/18/19 16:20 Ur Microscopic Review INDICATED 01/18/19 16:20 Urine Culture Comments NOT INDICATED 01/18/19 16:20 Nasal Screen MRSA (PCR) NEGATIVE (NEGATIVE) 01/18/19 20:42 Salicylates 10.5 mg/dL 01/18/19 15:55 Urine Opiates Screen POSITIVE (NEGATIVE) H 01/18/19 16:20 Ur Oxycodone Screen POSITIVE (NEGATIVE) H 01/18/19 16:20 Urine Methadone Screen NEGATIVE (NEGATIVE) 01/18/19 16:20 Ur Propoxyphene Screen NEGATIVE (NEGATIVE) 01/18/19 16:20 Acetaminophen < 10 ug/mL (10-30) L 01/18/19 15:55 Ur Barbiturates Screen NEGATIVE (NEGATIVE) 01/18/19 16:20 Ur Tricyclics Screen NEGATIVE (NEGATIVE) 01/18/19 16:20 Ur Phencyclidine Scrn NEGATIVE (NEGATIVE) 01/18/19 16:20 Ur Amphetamine Screen NEGATIVE (NEGATIVE) 01/18/19 16:20 U Methamphetamines Scrn NEGATIVE (NEGATIVE) 01/18/19 16:20 U Benzodiazepines Scrn NEGATIVE (NEGATIVE) 01/18/19 16:20 Urine Cocaine Screen NEGATIVE (NEGATIVE) 01/18/19 16:20 U Cannabinoids Screen NEGATIVE (NEGATIVE) 01/18/19 16:20 Ethyl Alcohol < 5.0 mg/dL 01/18/19 15:55 Serum Ketones SMALL (NEGATIVE) H 01/18/19 15:55
[2019-01-20] MEDS: FESOTERODINE FUMARATE 8 MG PO SCH (09:29)
[2019-01-20] MEDS: KETOROLAC 30 MG/ML VIAL IVP PRN ×2 (12:56→19:02)
[2019-01-20] MEDS ORDERED: IRON SUCROSE 100 MG in SODIUM CHLORIDE 0.9% 100ML 100 ML IV ONE (14:00)
--- NOTE | 2019-01-20 14:11 | XRAY Report ---
Reason: SOB, Hx of asthma Procedure Date: 01/20/2019 Accession Number: [id number] / [id number] Procedure: XR - Chest 1 View X-Ray CPT Code: 62065 FULL RESULT: EXAM: CHEST RADIOGRAPHY EXAM DATE: 01/20/2019 01:18 PM. CLINICAL HISTORY: SOB, Hx of asthma. COMPARISON: None. TECHNIQUE: 1 view. FINDINGS: Lungs/Pleura: There is mild linear atelectasis at left lung base. Lungs otherwise clear. No pulmonary edema or pneumothorax. Mediastinum: There is mild to moderate aortic arch atherosclerotic calcification and tortuosity. The heart size is normal. Other: There is an old posterior right eighth rib fracture with callus formation. IMPRESSION: Mild left basilar atelectasis. Lungs otherwise clear. RADIA
[2019-01-20] MEDS: MULTIVITAMIN 10 ML, THIAMINE INJ 100 MG, FOLIC ACID INJ 1 MG in D5.45NS W/20 MEQ KCL 1,... IV SCH (15:15)
[2019-01-20] MEDS: traZODone 50 MG TABLET PO SCH (21:09)
[2019-01-21] MEDS: SODIUM CHLORIDE 0.9% 1,000 ML IV SCH (01:41)
[2019-01-21] MEDS: HYDROmorphone 1 MG/ML SYRINGE IVP PRN ×3 (02:00→17:04)
[2019-01-21 05:23] LABS: BASOPHILS % (AUTO) 0.8 %; EOSINOPHILS # (AUTO) 0.1 10^3/uL (0.0-0.7); EOSINOPHILS % (AUTO) 2.7 %; LYMPHOCYTES # (AUTO) 1.3 10^3/uL (1.5-3.5); LYMPHOCYTES % (AUTO) 41.5 %; MEAN CORPUSCULAR HEMOGLOBIN 34.9 pg (27.0-31.0); MEAN CORPUSCULAR HGB CONC 32.9 g/dL (32.0-36.0); MEAN PLATELET VOLUME 8.2 fL (7.9-10.8); MONOCYTES # (AUTO) 0.2 10^3/uL (0.0-1.0); MONOCYTES % (AUTO) 7.4 %; NEUTROPHILS # (AUTO) 1.5 10^3/uL (1.5-6.6); NEUTROPHILS % (AUTO) 47.6 %; PLT - PLATELET COUNT 117 10^3/uL (130-450); RED BLOOD COUNT 2.88 10^6/uL (4.20-5.40); RED CELL DISTRIBUTION WIDTH 16.5 % (12.0-15.0); WHITE BLOOD COUNT 3.2 x10^3/uL (4.8-10.8)
[2019-01-21 06:14] LABS: ALBUMIN 2.9 g/dL (3.2-5.5); ALBUMIN/GLOBULIN RATIO 1.3 (1.0-2.2); ALKALINE PHOSPHATASE 67 IU/L (42-121); ALT ALANINE AMINOTRANSFERASE 35 IU/L (10-60); AST ASPARTATE AMINOTRANSFERASE 52 IU/L (10-42); BILIRUBIN,TOTAL 0.6 mg/dL (0.2-1.0); BUN - BLOOD UREA NITROGEN < 5 mg/dL (6-20); CALCIUM 8.3 mg/dL (8.5-10.3); CARBON DIOXIDE - CO2 24 mmol/L (21-32); CHLORIDE 103 mmol/L (101-111); CREATININE 0.5 mg/dL (0.4-1.0); GFR - MDRD 126 (>89); GLUCOSE 147 mg/dL (70-100); LIPASE 87 U/L (22-51); SODIUM 134 mmol/L (135-145); TOTAL PROTEIN 5.2 g/dL (6.7-8.2)
[2019-01-21] MEDS: SODIUM CHLORIDE FLUSH 0.9% 10 ML SYRINGE IVP SCH ×3 (06:14→17:08)
[2019-01-21] MEDS: oxyCODONE 5 MG TABLET PO SCH ×3 (06:14→21:17)
[2019-01-21] MEDS: PANTOPRAZOLE 40 MG VIAL IVP SCH (06:14)
[2019-01-21] MEDS: GABAPENTIN 300 MG CAPSULE PO SCH ×3 (06:14→21:18)
[2019-01-21] MEDS ORDERED: POTASSIUM PHOSPHATE 21 MMOL in SODIUM CHLORIDE 0.9% 250 ML IV ONE (08:00)
[2019-01-21] MEDS: FESOTERODINE FUMARATE 8 MG PO SCH (08:32)
[2019-01-21] MEDS: DEXTROSE 5%-0.9% NACL 1,000 ML IV SCH ×2 (08:53→19:57)
[2019-01-21] MEDS: FERROUS GLUCONATE 324 MG TABLET PO SCH (08:54)
[2019-01-21] MEDS: TOPIRAMATE 25 MG TABLET PO SCH ×2 (08:55→21:19)
[2019-01-21] MEDS ORDERED: POTASSIUM CHLORIDE 20 MEQ TABLET PO SCH (09:00)
[2019-01-21] MEDS ORDERED: SIMETHICONE 40 MG/0.6 ML 30 ML BOTTLE PO PRN (10:57)
--- NOTE | 2019-01-21 10:57 | PROVIDER PROGRESS NOTE ---
Assessment/Plan - Problem List (1) Tachycardia Assessment/Plan: She has been in positive fluid balance, with very good urine output, for 3 days. Her labs also do not show evidence of volume depletion, as the cause for the tachycardia. She does have some continued abdominal pain but more significant chronic back pain which may be causing the tachycardia. She may have an underlying dysrhythmia or have this tachycardia after some medications were discontinued. She will be ready to leave the ICU today but needs phototypesetting equipment monitor (2) Pancreatitis Qualifiers: Chronicity: acute Pancreatitis type: unspecified pancreatitis type Acute pancreatitis complication: unspecified Qualified Code(s): K85.90 - Acute pancreatitis without necrosis or infection, unspecified Assessment/Plan: The lipase level has decreased significantly every day. This was reviewed with her daughter Sophia by phone Imaging of the abdomen will be repeated today per (3) SOB (shortness of breath) Assessment/Plan: I toldthe patient her normal Echo, and troponin results. The patient points out that her inhalers have not been given. Will restart her meds for asthma. (4) History of asthma Assessment/Plan: As above. (5) Early satiety Assessment/Plan: The patient describes that she feels full quickly, and gets distension, and that is why she normally only eats once a day at home. Here she feels the same. BMs are normal. I was able to speak with the daughter, Sophia, who is a Pediatric WOM[employer] HE[employer] C[employer] NURSE PRACTITIONER, who told me that the patient only limits her diet when she feels that way, does not ALWAYS have that diet, does not usually get bloated and distended. Her abdominal exam is consistent with increased gas today, and she has normal bowel sounds. Will obtain a CT of abdomen/pelvis to R/O partial obstruction or other pathology. Will offer Simethicone. A Nutritional consult was requested, for tomorrow, Mon. (6) Anemia Qualifiers: Anemia type: iron deficiency Assessment/Plan: She received 1 dose of IV iron yesterday. Today she will start oral iron. This could give some abdominal discomfort. Follow CBC daily per (7) Hypokalemia Assessment/Plan: Replace K. Follow BMP daily (8) Hypophosphatemia Assessment/Plan: Replace phosphate. Follow phosphate level daily (9) Protein-calorie malnutrition Assessment/Plan: Her poor recent nutrition and calorie intake is described on yesterday's note. Nutrition consult was pending tomorrow. (10) GERD (gastroesophageal reflux disease) Assessment/Plan: Continue her Protonix. (11) Chronic back pain Qualifiers: Back pain location: low back pain Assessment/Plan: Continue with pain management as per home medications per (12) Hypertension Assessment/Plan: BP has been controlled with no meds, suggesting that she is still volume depleted. Will start BP med slowly, using Cardizem, for its rate conreol aspect (see above). (13) OAB (overactive bladder) Assessment/Plan: Continue her OAB meds as per home medication (14) Metabolic acidosis Assessment/Plan: Resolved - Current Meds Current Meds: Current Medications Generic Name Dose Route Start Last Admin Trade Name Freq PRN Reason Stop Dose Admin Diltiazem HCl 60 mg 01/21/19 09:00 01/21/19 08:53 Cardizem PO 60 mg TID JEANNIE Administration Ferrous Gluconate 324 mg 01/21/19 08:00 01/21/19 08:54 Fergon PO 324 mg DAILYWM JEANNIE Administration Gabapentin 300 mg 01/19/19 16:00 01/21/19 06:14 Neurontin PO 300 mg TID JEANNIE Administration Hydromorphone HCl 1 mg 01/19/19 19:46 01/21/19 09:05 Dilaudid Inj Syringe IVP 1 mg Q4HR PRN Administration PAIN Multivitamins 10 ml/ Thiamine 1,011.2 mls @ 100 mls/hr 01/20/19 15:00 01/21/19 00:40 HCl 100 mg/ Folic Acid 1 mg/ IV Infused Potassium Chloride/Dextrose/ Q24H JEANNIE Infusion Sod Cl Potassium Phosphate 21 mmol/ 257 mls @ 64 mls/hr 01/21/19 08:00 01/21/19 08:50 Sodium Chloride IV 01/21/19 12:00 64 mls/hr ONCE ONE Administration Protocol Dextrose/Sodium Chloride 1,000 mls @ 175 mls/hr 01/21/19 09:00 01/21/19 08:53 D5ns IV 125 mls/hr .[id number] JEANNIE Administration Ketorolac Tromethamine 30 mg 01/20/19 12:05 01/20/19 19:02 Toradol Inj (30mg) IVP 01/25/19 12:04 30 mg Q6HR PRN Administration PAIN Ondansetron HCl 4 mg 01/18/19 20:24 01/19/19 23:44 Zofran Inj IVP 4 mg Q6HR PRN Administration Nausea / Vomiting Oxycodone HCl 15 mg 01/19/19 22:00 01/21/19 06:14 Roxicodone PO 15 mg Q8HR JEANNIE Administration Pantoprazole Sodium 40 mg 01/19/19 07:00 01/21/19 06:14 Protonix IVP 40 mg QDAC JEANNIE Administration (Fesoterodine 1 each 01/20/19 09:30 01/21/19 08:32 Fumarate [Toviaz] 8 PO 1 each Mg) Tab DAILY JEANNIE Administration Prochlorperazine Edisylate 10 mg 01/18/19 20:24 01/20/19 03:55 Compazine Inj IVP 10 mg Q6HR PRN Administration Nausea / Vomiting Sodium Chloride 10 ml 01/19/19 01:00 01/21/19 08:54 Normal Saline Flush 0.9% IVP 10 ml 0100,0900,1700 JEANNIE Administration Sodium Chloride 10 ml 01/18/19 20:24 01/20/19 06:41 Normal Saline Flush 0.9% IVP 10 ml PRN PRN Administration NEEDED PER PROVIDER ORDERS Topiramate 25 mg 01/19/19 21:00 01/21/19 08:55 Topamax PO 25 mg BID JEANNIE Administration Trazodone HCl 50 mg 01/19/19 21:00 01/20/19 21:09 Desyrel PO 50 mg QPM JEANNIE Administration - Lab Result Fish Bone Diagrams: 01/21/19 05:00 01/21/19 05:00 - Additional Planning My Orders: My Active Orders 01/20/19 12:05 Ketorolac Inj (30Mg) [Toradol Inj (30Mg)] 30 mg IVP Q6HR PRN 01/20/19 12:07 Echo Transthoracic Complete [ECHO] Routine 01/20/19 12:35 Miscellaenous Nursing Order [RC] QSHIFT 01/20/19 15:00 Multivitamin [Infuvite] 10 ml Thiamine Inj [Vitamin B-1 Inj] 100 mg Folic Acid Inj 1 mg D5.45ns W/20 Meq KCl 1,000 ml IV Q24H 01/21/19 08:00 Ferrous Gluconate [Fergon] 324 mg PO DAILYWM Potassium Phosphate 21 mmol Sodium Chloride 0.9% [Normal Saline 0.9%] 250 ml IV ONCE 01/21/19 09:00 Dextrose 5%-0.9% NaCl [D5ns] 1,000 ml IV 175 mls/hr diltiaZEM [Cardizem] 60 mg PO TID 01/21/19 10:29 Transfer [Admit \ Transfer \ Status] [RC] .ONCE 01/21/19 12:00 Neutra-Phos [K-Phos Neutral] 250 mg PO TIDWM 01/21/19 Breakfast Clear Liquid Diet [DIET] 01/21/19 Dinner DIET [Dysphagia Puree Diet] [DIET] 01/21/19 Lunch DIET [Full Liquid Diet] [DIET] 01/22/19 05:00 BMP - BASIC METABOLIC PANEL [CHEM] DAILYLAB CBC - COMP BLD CT W/AUTO DIFF [HEME] DAILYLAB LIPASE [CHEM] DAILYLAB PHOSPHORUS [CHEM] DAILYLAB 01/23/19 05:00 BMP - BASIC METABOLIC PANEL [CHEM] DAILYLAB CBC - COMP BLD CT W/AUTO DIFF [HEME] DAILYLAB LIPASE [CHEM] DAILYLAB 01/24/19 05:00 BMP - BASIC METABOLIC PANEL [CHEM] DAILYLAB CBC - COMP BLD CT W/AUTO DIFF [HEME] DAILYLAB Objective Vital Signs: Vital Signs - 24 hr 01/20/19 01/20/19 01/20/19 12:00 14:00 15:00 Temperature 99.2 C H 99.3 C H Heart Rate [ 98 95 94 Monitoring electrodes] Respiratory 14 22 14 Rate Blood Pressure Blood Pressure 124/87 H 125/95 H 130/86 H [Right Brachial artery] O2 Saturation 97 95 97 01/20/19 01/20/19 01/20/19 16:00 17:00 17:59 Temperature 98.9 C H Heart Rate [ 92 93 89 Monitoring electrodes] Respiratory 12 16 12 Rate Blood Pressure Blood Pressure 114/83 H 110/80 122/80 [Right Brachial artery] O2 Saturation 98 96 95 01/20/19 01/20/19 01/20/19 19:00 20:31 21:18 Temperature 36.9 C Heart Rate [ 98 99 Monitoring electrodes] Respiratory 15 3 L 14 Rate Blood Pressure Blood Pressure 142/99 H 140/90 H 143/93 H [Right Brachial artery] O2 Saturation 95 98 97 01/20/19 01/20/19 01/21/19 22:00 23:00 00:00 Temperature 36.7 C Heart Rate [ 98 94 88 Monitoring electrodes] Respiratory 12 13 13 Rate Blood Pressure Blood Pressure 121/86 H 135/79 H 96/61 [Right Brachial artery] O2 Saturation 97 96 96 01/21/19 01/21/19 01/21/19 01:00 02:00 03:00 Temperature Heart Rate [ 98 102 H 97 Monitoring electrodes] Respiratory 19 14 12 Rate Blood Pressure Blood Pressure 128/84 H 141/99 H 129/84 H [Right Brachial artery] O2 Saturation 98 98 96 01/21/19 01/21/19 01/21/19 04:00 05:00 06:00 Temperature Heart Rate [ 99 100 106 H Monitoring electrodes] Respiratory 16 20 18 Rate Blood Pressure Blood Pressure 141/91 H 157/96 H 155/94 H [Right Brachial artery] O2 Saturation 96 99 97 01/21/19 01/21/19 01/21/19 07:00 07:44 08:53 Temperature 37.6 C H Heart Rate [ 112 H 113 H Monitoring electrodes] Respiratory 18 18 Rate Blood Pressure 146/93 H Blood Pressure 162/96 H 145/93 H [Right Brachial artery] O2 Saturation 99 98 01/21/19 10:00 Temperature 37.7 C H Heart Rate [ 105 H Monitoring electrodes] Respiratory 15 Rate Blood Pressure Blood Pressure 141/94 H [Right Brachial artery] O2 Saturation 97 Oxygen O2 Source Room air I&O (Last 24 Hrs): Intake and Output Totals x24h 01/19/19 01/20/19 01/21/19 23:59 23:59 23:59 Intake Total 6337.833 6477.0 3208.7 Output Total 826 2875 2625 Balance 5511.833 3602.0 583.7 General: Alert, Oriented x3 HEENT: Mucous membr. moist/pink Neck: Supple, No JVD Neuro: Non Focal Cardiovascular: Regular rate, No murmurs Respiratory: No respiratory distress, Breath sounds nml Abdomen: Normal bowel sounds, Soft, Other (Distended. Hypertympanic diffusely.) Extremities: No edema - Results Results: Laboratory Results WBC 3.2 x10^3/uL (4.8-10.8) L 04/28/19 05:00 RBC 2.88 10^6/uL (4.20-5.40) L 01/21/19 05:00 Hgb 10.0 g/dL (12.0-16.0) L 01/21/19 05:00 Hct 30.5 % (37.0-47.0) L 01/21/19 05:00 MCV 106.0 fL (81.0-99.0) H 01/21/19 05:00 MCH 34.9 pg (27.0-31.0) H 01/21/19 05:00 MCHC 32.9 g/dL (32.0-36.0) 01/21/19 05:00 RDW 16.5 % (12.0-15.0) H 01/21/19 05:00 Plt Count 117 10^3/uL (130-450) L 01/21/19 05:00 MPV 8.2 fL (7.9-10.8) 01/21/19 05:00 Neut # (Auto) 1.5 10^3/uL (1.5-6.6) 01/21/19 05:00 Lymph # (Auto) 1.3 10^3/uL (1.5-3.5) L 01/21/19 05:00 Jerauld # (Auto) 0.2 10^3/uL (0.0-1.0) 01/21/19 05:00 Eos # (Auto) 0.1 10^3/uL (0.0-0.7) 01/21/19 05:00 Baso # (Auto) 0.0 10^3/uL (0.0-0.1) 01/21/19 05:00 Absolute Nucleated RBC 0.00 x10^3/uL 01/21/19 05:00 Nucleated RBC % 0.0 /100WBC 01/21/19 05:00 VBG pH 7.434 (7.31-7.41) H 01/19/19 08:57 VBG pCO2 26.8 mmHg (41-51) L 01/19/19 08:57 VBG pO2 186.7 mmHg (25-47) H 01/19/19 08:57 VBG HCO3 17.5 mmol/L (23-28) L 01/19/19 08:57 VBG Total CO2 18.4 mmol/L (24-29) L 01/19/19 08:57 VBG O2 Saturation 99.1 % (60-80) H 01/19/19 08:57 VBG Base Excess -5.4 mmol/L (-2 - +2) L 01/19/19 08:57 Sodium 134 mmol/L (135-145) L 01/21/19 05:00 Potassium 3.7 mmol/L (3.5-5.0) 01/21/19 05:00 Chloride 103 mmol/L (101-111) 01/21/19 05:00 Carbon Dioxide 24 mmol/L (21-32) 01/21/19 05:00 Anion Gap 7.0 (6-13) 01/21/19 05:00 BUN < 5 mg/dL (6-20) L 01/21/19 05:00 Creatinine 0.5 mg/dL (0.4-1.0) 01/21/19 05:00 Estimated GFR (MDRD) 126 (>89) 01/21/19 05:00 Glucose 147 mg/dL (70-100) H 01/21/19 05:00 Lactic Acid 1.5 mmol/L (0.5-2.2) 01/18/19 16:33 Calcium 8.3 mg/dL (8.5-10.3) L 01/21/19 05:00 Phosphorus 1.4 mg/dL (2.5-4.6) L 01/21/19 05:00 Magnesium 1.6 mg/dL (1.7-2.8) L 01/21/19 05:00 Iron 44 ug/dL (28-170) 01/20/19 04:49 TIBC 160 ug/dL (250-450) L 01/20/19 04:49 % Saturation 28 % (20-50) 01/20/19 04:49 Transferrin 114 mg/dL (192-382) L 01/20/19 04:49 Total Bilirubin 0.6 mg/dL (0.2-1.0) 01/21/19 05:00 AST 52 IU/L (10-42) H 01/21/19 05:00 ALT 35 IU/L (10-60) 01/21/19 05:00 Alkaline Phosphatase 67 IU/L (42-121) 01/21/19 05:00 Total Protein 5.2 g/dL (6.7-8.2) L 01/21/19 05:00 Albumin 2.9 g/dL (3.2-5.5) L 01/21/19 05:00 Globulin 2.3 g/dL (2.1-4.2) 01/21/19 05:00 Albumin/Globulin Ratio 1.3 (1.0-2.2) 01/21/19 05:00 Triglycerides 77 mg/dL (-149) 01/20/19 04:49 Lipase 87 U/L (22-51) H 01/21/19 05:00 Vitamin B12 496 pg/mL (180-914) 01/20/19 04:49 Folate 9.25 ng/mL (5.90 - >24.8) 01/20/19 04:49 Urine Color YELLOW 01/18/19 16:20 Urine Clarity CLEAR (CLEAR) 01/18/19 16:20 Urine pH 5.5 PH (5.0-7.5) 01/18/19 16:20 Ur Specific Pearl >=1.030 (1.002-1.030) H 01/18/19 16:20 Urine Protein 30 mg/dL (NEGATIVE) H 01/18/19 16:20 Urine Glucose (UA) NEGATIVE mg/dL (NEGATIVE) 01/18/19 16:20 Urine Ketones >=80 mg/dL (NEGATIVE) H 01/18/19 16:20 Urine Occult Blood SMALL (NEGATIVE) H 01/18/19 16:20 Urine Nitrite NEGATIVE (NEGATIVE) 01/18/19 16:20 Urine Bilirubin NEGATIVE (NEGATIVE) 01/18/19 16:20 Urine Urobilinogen 0.2 (NORMAL) E.U./dL (NORMAL) 01/18/19 16:20 Ur Leukocyte Esterase NEGATIVE (NEGATIVE) 01/18/19 16:20 Urine RBC 0-5 /HPF (0-5) 01/18/19 16:20 Urine WBC 0-3 /HPF (0-5) 01/18/19 16:20 Ur Squamous Epith Cells RARE Squamous (<= Few) 01/18/19 16:20 Urine Bacteria None Seen /HPF (None Seen) 01/18/19 16:20 Urine Casts 3-5 Fine Granular /LPF 01/18/19 16:20 Ur Microscopic Review INDICATED 01/18/19 16:20 Urine Culture Comments NOT INDICATED 01/18/19 16:20 Nasal Screen MRSA (PCR) NEGATIVE (NEGATIVE) 01/18/19 20:42 Salicylates 10.5 mg/dL 01/18/19 15:55 Urine Opiates Screen POSITIVE (NEGATIVE) H 01/18/19 16:20 Ur Oxycodone Screen POSITIVE (NEGATIVE) H 01/18/19 16:20 Urine Methadone Screen NEGATIVE (NEGATIVE) 01/18/19 16:20 Ur Propoxyphene Screen NEGATIVE (NEGATIVE) 01/18/19 16:20 Acetaminophen < 10 ug/mL (10-30) L 01/18/19 15:55 Ur Barbiturates Screen NEGATIVE (NEGATIVE) 01/18/19 16:20 Ur Tricyclics Screen NEGATIVE (NEGATIVE) 01/18/19 16:20 Ur Phencyclidine Scrn NEGATIVE (NEGATIVE) 01/18/19 16:20 Ur Amphetamine Screen NEGATIVE (NEGATIVE) 01/18/19 16:20 U Methamphetamines Scrn NEGATIVE (NEGATIVE) 01/18/19 16:20 U Benzodiazepines Scrn NEGATIVE (NEGATIVE) 01/18/19 16:20 Urine Cocaine Screen NEGATIVE (NEGATIVE) 01/18/19 16:20 U Cannabinoids Screen NEGATIVE (NEGATIVE) 01/18/19 16:20 Ethyl Alcohol < 5.0 mg/dL 01/18/19 15:55 Serum Ketones SMALL (NEGATIVE) H 01/18/19 15:55 ABX Reporting Has patient been on IV antibiotics over the past 48 hours?: No
[2019-01-21] MEDS: KETOROLAC 30 MG/ML VIAL IVP PRN ×2 (12:01→19:22)
[2019-01-21] MEDS: NEUTRA-PHOS 250 MG TABLET PO SCH ×2 (12:01→17:03)
--- NOTE | 2019-01-21 14:09 | CT Report ---
Reason: Abd pain with distension and hypertympany (gas) Procedure Date: 01/21/2019 Accession Number: [id number] / [id number] Procedure: CT - Abdomen/Pelvis WO CPT Code: FULL RESULT: EXAM: CT ABDOMEN AND PELVIS (CT KUB) EXAM DATE: 01/21/2019 01:19 PM. CLINICAL HISTORY: Abd pain with distension and hypertympany (gas). COMPARISONS: ABDOMEN/PELVIS W/ 01/18/2019 4:51 PM. TECHNIQUE: Routine axial helical CT imaging was performed through the abdomen and pelvis without IV contrast. Reconstructions: Coronal and sagittal. In accordance with CT protocol optimization, one or more of the following dose reduction techniques were utilized for this exam: automated exposure control, adjustment of mA and/or KV based on patient size, or use of iterative reconstructive technique. FINDINGS: Lung Bases: Mild streaky scarring/atelectasis in the posterior/inferior left upper lobe. Minimal dependent atelectasis bilaterally. Right Kidney/Ureter: No stones, hydronephrosis, or hydroureter. No perinephric fat stranding. Left Kidney/Ureter: No stones, hydronephrosis, or hydroureter. No perinephric fat stranding. Other Solid Organs: Hepatic steatosis less apparent on noncontrast imaging. No discrete liver mass visualized. The adrenal glands and spleen are unremarkable. The previous fluid collection between the pancreatic head and duodenum is no longer present. The pancreas has an unremarkable appearance. No evidence of pancreatic inflammation, peripancreatic fluid collections, pancreatic duct dilatation, or pancreatic glandular calcifications. Gallbladder/Bile Ducts: Unremarkable. Peritoneal Cavity: Probable medication tablet in the gastric antrum. Nonobstructive bowel gas pattern. Inflammatory changes to the proximal duodenum have resolved. The appendix is normal. No free air or free fluid. Pelvic Organs: Redemonstrated subserosal fibroids in the left uterine body. The ovaries are not well seen. The urinary bladder is unremarkable. Vasculature: Scattered calcified atherosclerotic plaques throughout the abdominal aorta and iliac arteries without evidence of aneurysm. Other: The bones are osteopenic. Subacute versus chronic fracture of the lateral right seventh rib. Partially visualized fixation hardware in the proximal left femur. Posterior spinal fixation hardware in the lumbar spine spanning from L3-L5. 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 Degenerative disk disease at T12-L1 and L1-L2. IMPRESSION: Nonobstructive bowel gas pattern. Resolution of previous proximal duodenal and pancreatic head inflammation. The fluid collection between the pancreatic head and duodenum has also resolved. Normal appendix. No hydronephrosis or nephrolithiasis. Hepatic steatosis. Fibroid uterus. RADIA
[2019-01-21] MEDS: MULTIVITAMIN 10 ML, THIAMINE INJ 100 MG, FOLIC ACID INJ 1 MG in D5.45NS W/20 MEQ KCL 1,... IV SCH (15:00)
[2019-01-21] MEDS ORDERED: ALBUTEROL NEB 2.5 MG/3 ML INH PRN (17:49)
[2019-01-21] MEDS ORDERED: IPRATROPIUM/ALBUTEROL 3 ML NEB INH PRN (17:50)
[2019-01-21] MEDS: SODIUM CHLORIDE FLUSH 0.9% 10 ML SYRINGE IVP PRN (19:22)
[2019-01-21] MEDS ORDERED: tiZANidine 4 MG TABLET PO SCH (21:00)
[2019-01-21] MEDS: SIMETHICONE CHEW 80 MG TABLET PO PRN (21:19)
[2019-01-21] MEDS: traZODone 50 MG TABLET PO SCH (23:44)
[2019-01-22] MEDS: SODIUM CHLORIDE FLUSH 0.9% 10 ML SYRINGE IVP SCH ×2 (00:51→09:15)
[2019-01-22] MEDS: HYDROmorphone 1 MG/ML SYRINGE IVP PRN ×2 (00:51→10:33)
[2019-01-22] MEDS: DEXTROSE 5%-0.9% NACL 1,000 ML IV SCH ×2 (02:13→07:40)
[2019-01-22 05:45] LABS: BASOPHILS % (AUTO) 1.1 %; EOSINOPHILS # (AUTO) 0.1 10^3/uL (0.0-0.7); EOSINOPHILS % (AUTO) 3.3 %; HGB - HEMOGLOBIN 10.2 g/dL (12.0-16.0); LYMPHOCYTES # (AUTO) 1.4 10^3/uL (1.5-3.5); MEAN CORPUSCULAR HEMOGLOBIN 34.9 pg (27.0-31.0); MEAN CORPUSCULAR VOLUME 109.2 fL (81.0-99.0); MEAN PLATELET VOLUME 8.2 fL (7.9-10.8); MONOCYTES # (AUTO) 0.2 10^3/uL (0.0-1.0); MONOCYTES % (AUTO) 8.7 %; NEUTROPHILS # (AUTO) 1.1 10^3/uL (1.5-6.6); NEUTROPHILS % (AUTO) 38.9 %; PLT - PLATELET COUNT 132 10^3/uL (130-450); RED BLOOD COUNT 2.91 10^6/uL (4.20-5.40); WHITE BLOOD COUNT 2.8 x10^3/uL (4.8-10.8)
[2019-01-22] MEDS: oxyCODONE 5 MG TABLET PO SCH ×2 (05:58→13:48)
[2019-01-22] MEDS: GABAPENTIN 300 MG CAPSULE PO SCH ×2 (06:01→13:48)
[2019-01-22] MEDS: PANTOPRAZOLE 40 MG VIAL IVP SCH (06:01)
[2019-01-22] MEDS: SIMETHICONE CHEW 80 MG TABLET PO PRN (06:02)
[2019-01-22] MEDS: SODIUM CHLORIDE FLUSH 0.9% 10 ML SYRINGE IVP PRN ×2 (06:02→06:03)
[2019-01-22 06:04] LABS: BUN - BLOOD UREA NITROGEN < 5 mg/dL (6-20); CALCIUM 8.1 mg/dL (8.5-10.3); CARBON DIOXIDE - CO2 22 mmol/L (21-32); CHLORIDE 108 mmol/L (101-111); CREATININE 0.4 mg/dL (0.4-1.0); GFR - MDRD 163 (>89); GLUCOSE 139 mg/dL (70-100); LIPASE 52 U/L (22-51); PHOSPHORUS 2.6 mg/dL (2.5-4.6); SODIUM 140 mmol/L (135-145)
[2019-01-22] MEDS: FERROUS GLUCONATE 324 MG TABLET PO SCH (07:40)
[2019-01-22] MEDS: NEUTRA-PHOS 250 MG TABLET PO SCH ×2 (07:41→12:32)
[2019-01-22] MEDS ORDERED: BUDESONIDE 0.5 MG/2 ML NEB INH SCH (09:00)
[2019-01-22] MEDS ORDERED: FORMOTEROL FUMARATE NEB 20 MCG/2 ML INH SCH (09:00)
[2019-01-22] MEDS: TOPIRAMATE 25 MG TABLET PO SCH (09:15)
[2019-01-22] MEDS: FESOTERODINE FUMARATE 8 MG PO SCH (09:15)
--- NOTE | 2019-01-22 11:59 | Discharge Plan ---
Discharge Plan Disposition: Home, Self Care Condition: Stable Prescriptions: diltiaZEM [Cardizem] 60 mg PO BID #60 tablet Ferrous Gluconate [Iron] 240 mg PO DAILY #30 tablet Folic Acid/Vit Bcomp,C [B-Complex with Vit C Tablet] 400 mcg PO DAILY #30 tablet Thiamine [Vitamin B-1] 100 mg PO DAILY #30 tablet Diet: Soft Activity Restrictions: Activity as Tolerated Shower Restrictions: No Assistance Devices: Cane Instruction Topics: Pancreatitis Additional Instructions or Follow Up instructions: You were admitted with pancreatitis, dehydration, starvation ketosis, and malnutrition causing low blood counts including severe anemia. Please advance your diet as tolerated. Start taking the daily vitamin and mineral supplements prescribed. See your PCP this week in hospital follow-up and to discuss management of the bloating, gas and early stiety. One medication was changed out: stop Lisinopril and start taking the Cardizem twice a day (for high BP). If you have new or worsening symptoms, call your PCP or come to the ER. No Smoking: If you smoke, Please STOP! Call for help. Follow-up with: SADA NEVAREZ MD [Physician No Access] -
[2019-01-22 15:27] VITALS: BP 136/85
--- NOTE | 2019-01-23 18:13 | DISCHARGE SUMMARY ---
Physician: Bea Cruz MD DATE OF ADMISSION: 01/18/2019 DATE OF DISCHARGE: 01/22/2019 HISTORY OF PRESENT ILLNESS: This is a 58-year-old white female with a remote history of alcohol abuse, no alcohol intake for 9 months; history of hypertension, asthma, chronic low back pain, GERD, overactive bladder, who presented with several days of abdominal pain, dry heaving and very nauseated, unable to take any liquid or food. She describes having early satiety and bloating feelings, which had been complaints for the previous 7 days, and she was only eating 1 small meal a day. She also describes dyspnea with exertion, despite using her scheduled inhalers. She presented to the emergency room with chills, but no fever, and was found to have marked acidosis with a serum pH of 7.19 and bicarbonate of 9, and her CT of the abdomen revealed acute pancreatitis. She had a lipase elevated at 281. She was admitted to the ICU for management of acute pancreatitis with metabolic acidosis. HOSPITAL COURSE AND DISCHARGE DIAGNOSES 1. Pancreatitis. Patient remembered having similar symptoms 1 month ago. She vehemently denied alcohol intake to suggested cause of the pancreatitis. She underwent evaluation for cholecystitis or gallstones, and these were also negative. She had followup imaging later in her course which revealed that her pancreatic duct had been swollen; this had returned to normal. She was advised to have a PCP referral to Gastroenterology for further evaluation and management of this episode of pancreatitis with an idiopathic cause and also for continued symptoms of early satiety, gassiness, and bloating. 2. Dehydration. The patient had clinical signs of marked dehydration. She was started on aggressive IV saline hydration. Her diet was n.p.o. for bowel rest, then eventually she was started on clear liquids, and only on her last day was she able to advance her diet to pureed and then solid food, and she continued good oral hydration. 3. Starvation ketoacidosis. There had been no history of diabetes. There were no findings on her toxicology screen to explain the severe acidemia; even her serum ketones were small positive. Presumably, she had marked starvation ketoacidosis, which resolved with the treatment above. 4. Protein-calorie malnutrition. Patient described weight loss and poor calorie intake as above. She claimed that this was done in order to prevent the bloating feelings. GI evaluation and management is advised. 5. Tachycardia. She was tachycardic related to her volume depletion, but after several days and greater than 5 liters positive fluid balance, her heart rate remained in the 120-130 range in sinus tachycardia. For this reason, her lisinopril blood pressure medication was changed to Cardizem, which improved the resting heart rate to 90, and she was discharged with this new management for blood pressure. 6. Hypertension. As above. 7. Shortness of breath. The patient was fatigued and weak. Her asthma medications were restarted after several days because of her marked lethargy in the first few days. In addition, she had other workup to evaluate her complaints of shortness of breath with just walking across the room. Her troponin was negative. Her resting echo showed normal LV and RV contractility and no signs of pulmonary hypertension. Presumably her underlying asthma was adding to this symptom. 8. History of asthma. The patient had run out of nebulizer medications at home; these were refilled at discharge. 9. Early satiety. GI workup of this is advised. 10. Iron deficiency anemia. Patient's hemoglobin was 12.6 on admission. This dropped to 9.7 after the aggressive IV hydration. She underwent blood testing and had normal B12 and folate levels, but low iron levels and received one dose of IV iron, then was started on daily iron supplements. It was felt she had severe lack of proper vitamins and trace elements, to explain this deficiency. 11. Hypokalemia. Related to her poor intake and dehydration. This was replaced both IV and p.o. 12. Hypophosphatemia. This was also related to her poor intake before admission. It was replaced IV and p.o. 13. Gastroesophageal reflux disease. She was kept on her medications, and this should also be reviewed with gastroenterology consultation. 14. Chronic low back pain. The patient requires a cane to walk and takes p.r.n. and scheduled pain medications. 15. Overactive bladder. She was kept on her medications for this. LABORATORY AND IMAGING: Reviewed and summarized above. ALLERGIES: SULFA. MEDICATIONS AT THE TIME OF DISCHARGE 1. Albuterol nebulizer q.4-h p.r.n. 2. ProAir inhaler p.r.n. 3. Symbicort inhaler 2 puffs b.i.d. 4. Toviaz 8 mg daily. 5. Gabapentin 300 mg t.i.d. 6. Lisinopril was stopped. 7. Omeprazole 40 mg b.i.d. 8. Oxycodone 15 mg t.i.d. 9. Zanaflex 2 mg q.p.m. 10. Topiramate 25 mg b.i.d. 11. Desyrel 15 mg every night. 12. Pulmicort nebulizer 2 puffs b.i.d. 13. Diltiazem 60 mg b.i.d. 14. Iron gluconate 240 mg daily. 15. Multivitamin with B complex and vitamin C, 1 daily. 16. Perforomist nebulizer 2 puffs b.i.d. 17. Zofran translingual 4 mg, q.8 hours p.r.n. nausea. 18. Thiamine 100 mg daily. CONDITION AT DISCHARGE: Stable. PHYSICAL EXAMINATION VITAL SIGNS: Blood pressure 136/85, pulse 95, sinus rhythm, afebrile, room air saturation 98%. HEENT: Unremarkable. NECK: No JVD. CHEST: Clear. No wheezing. No rales. HEART: Heart sounds normal. ABDOMEN: Distended, hypertympanic, nontender. Normal bowel sounds. No organomegaly. EXTREMITIES: No edema. NEUROLOGIC: Grossly intact. FOLLOWUP: She was advised to see her PCP this week for hospital followup, lab tests, GI evaluation and referral. CODE STATUS: FULL CODE. Time required to complete this entire discharge, chart review, patient education, phone calls made with her daughter, who is a nurse, dictation: 60 minutes. cc: Mahesh Maurer MD TD: 01/23/2019 17:07 MTDD
== END 2019-01-22 16:10 | disposition home or self-care (01) | DRG 439 ==
LOC: ED 15:35 → ICU 18:46 → MS2 01-21 18:50
PROVIDERS: ADMIT Internal Medicine; ATTEND Internal Medicine
DX: K85.90 Acute pancreatitis without necrosis or infection, unspecified (principal); E87.2 Acidosis; E46 Unspecified protein-calorie malnutrition; Z87.891 Personal history of nicotine dependence; D61.818 Other pancytopenia; Z88.2 Allergy status to sulfonamides; I10 Essential (primary) hypertension; E16.2 Hypoglycemia, unspecified; R00.0 Tachycardia, unspecified; E86.0 Dehydration; J45.909 Unspecified asthma, uncomplicated; G89.29 Other chronic pain; M54.5 Low back pain; K21.9 Gastro-esophageal reflux disease without esophagitis; N32.81 Overactive bladder; Z68.32 Body mass index [BMI] 32.0-32.9, adult; R68.81 Early satiety; E87.6 Hypokalemia; E83.39 Other disorders of phosphorus metabolism; G47.00 Insomnia, unspecified; F51.9 Sleep disorder not due to a substance or known physiological condition, unspecified; Z90.722 Acquired absence of ovaries, bilateral
CPT/HCPCS: 36415; 71045; 74176; 74177; 76705; 80048; 80053; 80306; 80307; 80320; 80329; 81001; 81003; 82009; 82607; 82746; 82803; 83540; 83605; 83690; 83735; 84100; 84466; 84478; 85025; 87086; 87150; 93005; 93306; 94640; 96365; 96366; 96375; 99283; 99285